=== PATIENT | male | born 1965 | race Caucasian/White ===

== ENCOUNTER 2016-12-02 14:19 | Inpatient (IN) | payer OTHER ==
[2016-12-02] MEDS ORDERED: SODIUM CHLORIDE 0.9% 1,000 ML IV STA (15:15)
--- NOTE | 2016-12-02 15:15 | ED ---
Weakness HPI - General Chief complaint: Weakness Stated complaint: Weakness Time Seen by Provider: 12/02/16 14:56 Source: patient, EMS Mode of arrival: EMS Limitations: no limitations - History of Present Illness Initial comments: Patient is a 51-year-old male who presents with a chief complaint gradually worsening weakness over the last 3 days. Patient has a significant history of multiple sclerosis. She describes generalized weakness over the last 3 days culminating in a fall happened yesterday while he was going to the bathroom. Patient states he went to stand up from the toilet, and was unable to do so and fell back down. He is complaining of left hip pain and back pain at this time. Patient cannot identify any aggravating or alleviating factors to his weakness. Timing is constant. Patient does admit that he was admitted to the hospital last year for an exacerbation of multiple sclerosis, and he states this feels similar. MD Complaint: generalized weakness, difficulty walking Onset/Timin -: days(s) Location: generalized Severity: moderate Consistency: constant Improves with: none Worsens with: exertion Context: other (Hx of MS ) Associated Symptoms: shortness of breath - Related Data Home Medications Medication Instructions Recorded Confirmed Aspirin 81 mg PO DAILY 09/29/13 12/02/16 Cyclobenzaprine [Flexeril] 10 mg PO TID PRN 09/29/13 12/02/16 Gabapentin [Neurontin] 600 mg PO QID 09/29/13 12/02/16 Tamsulosin HCl [Flomax] 0.8 mg PO HS 09/29/13 12/02/16 Ergocalciferol [Vitamin D2 1 tab PO QMONTH 04/25/14 12/02/16 (DRISDOL)] Docusate [Colace] 200 mg PO DAILY PRN 04/05/15 12/02/16 Oxybutynin Chloride [Ditropan] 5 mg PO BID 06/18/16 12/02/16 Clotrimazole [Lotrimin AF] 1 applic TOPICAL TID PRN 12/02/16 12/02/16 Cyanocobalamin [Vitamin B-12] 500 mcg PO DAILY 12/02/16 12/02/16 Doxazosin Mesylate [Cardura] 2 mg PO HS 12/02/16 12/02/16 Omeprazole 20 mg PO BID 12/02/16 12/02/16 Previous Rx's Medication Instructions Recorded HYDROcodone/APAP 5-325MG [[place] 1 tab PO BID PRN #60 tab 04/11/15 5-325] Ibuprofen [Motrin] 800 mg PO BID PRN #0 04/11/15 Allergies Allergy/AdvReac Type Severity Reaction Status Date / Time bee venom protein (honey bee) Allergy Anaphylaxis Verified 12/02/16 15:14 Penicillins Allergy Rash/Hives Verified 12/02/16 15:14 Review of Systems ROS Statement: Those systems with pertinent positive or pertinent negative responses have been documented in the HPI. ROS Other: All systems not noted in ROS Statement are negative. Constitutional: Reports: weakness Respiratory: Reports: dyspnea Gastrointestinal: Reports: constipation Musculoskeletal: Reports: arthralgia Past Medical History Past Medical History: GERD/Reflux, Musculoskeletal Disorder, Prostate Disorder, Sleep Apnea/CPAP/BIPAP Additional Past Medical History / Comment(s): Yen shinnelson- 15 years ago,won't use machine,norm for pt-he is able able to walk 5 steps with walker but last few days to weak to even lift legs, unable to walk or stand. Pt states has memory problems related to Multiple Sclerosis. History of Any Multi-Drug Resistant Organisms: None Reported Past Surgical History: No Surgical Hx Reported Additional Past Surgical History / Comment(s): laser eye sx oliva eyes( glaucoma) [place] teeth extraction. Past Anesthesia/Blood Transfusion Reactions: No Reported Reaction Past Psychological History: No Psychological Hx Reported Smoking Status: Current every day smoker Past Alcohol Use History: None Reported Past Drug Use History: Marijuana - Past Family History Father Family Medical History: Cancer Additional Family Medical History / Comment(s): liver cancer Mother Family Medical History: Diabetes Mellitus, Deep Vein Thrombosis (DVT) Sister(s) Family Medical History: Cancer General Exam Limitations: no limitations General appearance: alert, in no apparent distress Head exam: Present: atraumatic, normocephalic Eye exam: Present: normal appearance, PERRL, EOMI ENT exam: Present: normal oropharynx Neck exam: Present: normal inspection Respiratory exam: Present: wheezes (Patient has bilateral wheezes likely secondary to COPD.) Cardiovascular Exam: Present: regular rate, normal rhythm GI/Abdominal exam: Present: soft, tenderness (patient has suprapubic tenderness) Extremities exam: Present: normal inspection Back exam: Present: normal inspection Neurological exam: Present: alert, oriented X3, abnormal gait Psychiatric exam: Present: normal affect, normal mood Skin exam: Present: warm, dry, intact Course Vital Signs 12/02/16 12/02/16 14:30 16:13 Temperature 97.9 F Pulse Rate 71 74 Respiratory 16 18 Rate Blood Pressure 116/74 143/82 O2 Sat by Pulse 99 98 Oximetry Medical Decision Making - Medical Decision Making Patient is a 51-year-old male with a history of multiple sclerosis who presents with a chief complaint of weakness. Patient states that this has been getting worse over the last 3 days, culminating in him falling while trying to stand up from the toilet. He states that he has left hip and back pain secondary to his fall. Patient's history and exam suspect for exacerbation of MS. We'll send basic lab work, troponins, and TSH. We'll send patient for CT head as there is no recent examination on file for this patient. CT results from 04/05/2015 showed that there are no acute intracranial findings other than fairly moderate white matter changes secondary to suspected MS. She will have x-rays of his left hip and lumbar spine. EKG performed at 45 shows normal sinus rhythm with a rate of 62 bpm. Intervals appear to be within normal limits. EKG is otherwise nonspecific. Patient was given an initial dose of 125 mg of Solu- Medrol. Lab evaluation of this patient is grossly unremarkable. Urinalysis does not show strong evidence of urinary tract infection therefore antibiotics will be held at this time. At this time we are still pending results of the CT brain. My impression is that this patient is having exacerbation of multiple sclerosis. 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 Paul who accepts admission of this patient. Reevaluation of the patient shows that he is stable, in no acute distress. Patient is stable for transport to the floor. - Lab Data Result diagrams: 12/02/16 16:00 12/02/16 16:00 Lab Results 12/02/16 12/02/16 12/02/16 Range/Units 16:00 16:00 16:00 WBC 11.0 H (3.8-10.6) k/uL RBC 5.03 (4.30-5.90) m/uL Hgb 17.2 (13.0-17.5) gm/dL Hct 48.6 (39.0-53.0) % MCV 96.8 (80.0-100.0) fL MCH 34.2 (25.0-35.0) pg MCHC 35.3 (31.0-37.0) g/dL RDW 12.2 (11.5-15.5) % Plt Count 195 (150-450) k/uL Neutrophils % 70 % Lymphocytes % 22 % Monocytes % 4 % Eosinophils % 3 % Basophils % 1 % Neutrophils # 7.7 (1.3-7.7) k/uL Lymphocytes # 2.4 (1.0-4.8) k/uL Monocytes # 0.4 (0-1.0) k/uL Eosinophils # 0.3 (0-0.7) k/uL Basophils # 0.1 (0-0.2) k/uL PT (9.0-12.0) sec INR (<1.1) APTT (22.0-30.0) sec Sodium 141 (137-145) mmol/L Potassium 4.2 (3.5-5.1) mmol/L Chloride 107 (98-107) mmol/L Carbon Dioxide 24 (22-30) mmol/L Anion Gap 10 mmol/L BUN 16 (9-20) mg/dL Creatinine 0.68 (0.66-1.25) mg/dL Est GFR (MDRD) Af Amer >60 (>60 ml/min/1.73 sqM) Est GFR (MDRD) Non-Af >60 (>60 ml/min/1.73 sqM) Glucose 82 (74-99) mg/dL Calcium 9.5 (8.4-10.2) mg/dL Total Bilirubin 1.2 (0.2-1.3) mg/dL AST 18 (17-59) U/L ALT 26 (21-72) U/L Alkaline Phosphatase 69 (38-126) U/L Total Creatine Kinase 76 (55-170) U/L CK-MB (CK-2) 0.6 (0.0-2.4) ng/mL CK-MB (CK-2) Rel Index 0.8 Troponin I <0.012 (0.000-0.034) ng/mL Total Protein 7.0 (6.3-8.2) g/dL Albumin 4.3 (3.5-5.0) g/dL TSH 0.819 (0.465-4.680) mIU/L Urine Color Urine Appearance (Clear) Urine pH (5.0-8.0) Ur Specific [place] (1.001-1.035) Urine Protein (Negative) Urine Glucose (UA) (Negative) Urine Ketones (Negative) Urine Blood (Negative) Urine Nitrite (Negative) Urine Bilirubin (Negative) Urine Urobilinogen (<2.0) mg/dL Ur Leukocyte Esterase (Negative) Urine WBC (0-5) /hpf Urine Mucus (None) /hpf 12/02/16 12/02/16 Range/Units 16:00 17:07 WBC (3.8-10.6) k/uL RBC (4.30-5.90) m/uL Hgb (13.0-17.5) gm/dL Hct (39.0-53.0) % MCV (80.0-100.0) fL MCH (25.0-35.0) pg MCHC (31.0-37.0) g/dL RDW (11.5-15.5) % Plt Count (150-450) k/uL Neutrophils % % Lymphocytes % % Monocytes % % Eosinophils % % Basophils % % Neutrophils # (1.3-7.7) k/uL Lymphocytes # (1.0-4.8) k/uL Monocytes # (0-1.0) k/uL Eosinophils # (0-0.7) k/uL Basophils # (0-0.2) k/uL PT 10.9 (9.0-12.0) sec INR 1.1 (<1.1) APTT 21.9 L (22.0-30.0) sec Sodium (137-145) mmol/L Potassium (3.5-5.1) mmol/L Chloride (98-107) mmol/L Carbon Dioxide (22-30) mmol/L Anion Gap mmol/L BUN (9-20) mg/dL Creatinine (0.66-1.25) mg/dL Est GFR (MDRD) Af Amer (>60 ml/min/1.73 sqM) Est GFR (MDRD) Non-Af (>60 ml/min/1.73 sqM) Glucose (74-99) mg/dL Calcium (8.4-10.2) mg/dL Total Bilirubin (0.2-1.3) mg/dL AST (17-59) U/L ALT (21-72) U/L Alkaline Phosphatase (38-126) U/L Total Creatine Kinase (55-170) U/L CK-MB (CK-2) (0.0-2.4) ng/mL CK-MB (CK-2) Rel Index Troponin I (0.000-0.034) ng/mL Total Protein (6.3-8.2) g/dL Albumin (3.5-5.0) g/dL TSH (0.465-4.680) mIU/L Urine Color Yellow Urine Appearance Clear (Clear) Urine pH 6.5 (5.0-8.0) Ur Specific [place] 1.011 (1.001-1.035) Urine Protein Negative (Negative) Urine Glucose (UA) Negative (Negative) Urine Ketones Trace H (Negative) Urine Blood Negative (Negative) Urine Nitrite Negative (Negative) Urine Bilirubin Negative (Negative) Urine Urobilinogen 4.0 (<2.0) mg/dL Ur Leukocyte Esterase Moderate H (Negative) Urine WBC 8 H (0-5) /hpf Urine Mucus Rare H (None) /hpf Disposition Clinical Impression: Multiple sclerosis exacerbation, Abnormal gait, Fall, Left hip pain Disposition: ADMITTED IP TO THIS HOSP Condition: Fair Referrals: None,Stated [Primary Care Provider] - 1-2 days - Out of Hospital Transfer - Req. Specs Out of Hospital Transfer - Requested Specifics: Telemetry Unit
[2016-12-02] MEDS ORDERED: methylPREDNISolone 4 MG TAB PO STA (15:32)
[2016-12-02] MEDS ORDERED: methylPREDNISolone SOD SUCCI 125 MG/2 ML VIAL IV STA (15:51)
[2016-12-02 16:20] LABS: Basophils # (A) 0.1 k/uL (0-0.2); Basophils % (A) 1 %; CH 33.5; CHCM 34.8; Eosinophils # (A) 0.3 k/uL (0-0.7); Eosinophils % (A) 3 %; HCT 48.6 % (39.0-53.0); HDW 2.49; HGB 17.2 gm/dL (13.0-17.5); Luc # (Auto) 0.17; Luc % (Auto) 2; Lymphocytes # (A) 2.4 k/uL (1.0-4.8); Lymphocytes % (A) 22 %; MCH 34.2 pg (25.0-35.0); MCHC 35.3 g/dL (31.0-37.0); MCV 96.8 fL (80.0-100.0); Mean Platelet Volume 7.4; Monocytes # (A) 0.4 k/uL (0-1.0); Monocytes % (A) 4 %; Neutrophils # (A) 7.7 k/uL (1.3-7.7); Neutrophils % (A) 70 %; RBC 5.03 m/uL (4.30-5.90); RDW 12.2 % (11.5-15.5); WBC (Perox) 10.78
[2016-12-02 16:27] LABS: INR 1.1 (<1.1); Partial Thromboplastin Time 21.9 sec (22.0-30.0); Prothrombin Time 10.9 sec (9.0-12.0)
[2016-12-02 16:30] LABS: ALT 26 U/L (21-72); AST 18 U/L (17-59); Alkaline Phosphatase 69 U/L (38-126); Anion Gap 10 mmol/L; Blood Urea Nitrogen 16 mg/dL (9-20); Calcium 9.5 mg/dL (8.4-10.2); Carbon Dioxide 24 mmol/L (22-30); Chloride 107 mmol/L (98-107); Glucose 82 mg/dL (74-99); Non-African American GFR(MDRD) >60 (>60 ml/min/1.73 sqM); Potassium 4.2 mmol/L (3.5-5.1); Sodium 141 mmol/L (137-145); Total Bilirubin 1.2 mg/dL (0.2-1.3)
[2016-12-02 16:41] LABS: Creatine Kinase 76 U/L (55-170)
--- NOTE | 2016-12-02 16:47 | XR ---
EXAMINATION TYPE: XR chest 2V DATE OF EXAM: 12/02/2016 COMPARISON: Chest x-ray November 20, 2015 HISTORY: Fall today with weakness and pain. TECHNIQUE: Frontal and lateral views of the chest are obtained. FINDINGS: There is no focal air space opacity, pleural effusion, or pneumothorax seen. The cardiac silhouette size is within normal limits. The osseous structures are intact. IMPRESSION: No acute process identified. No significant change from prior.
--- NOTE | 2016-12-02 16:47 | XR ---
EXAMINATION TYPE: XR Hip Complete LT DATE OF EXAM: 12/02/2016 CLINICAL HISTORY: Fall today with left hip pain. TECHNIQUE: AP and frogleg views of the left hip are obtained. COMPARISON: None. FINDINGS: There is no acute fracture/dislocation evident in the left hip. The joint space in the le ft hip appears within normal limits. Some scattered pelvic phleboliths are noted. IMPRESSION: There is no acute fracture or dislocation in the left hip.
--- NOTE | 2016-12-02 16:50 | XR ---
EXAMINATION TYPE: XR lumbar spine 2 or 3V DATE OF EXAM: 12/02/2016 CLINICAL HISTORY: Fall today with low back pain TECHNIQUE: Frontal and lateral images of the lumbar spine are obtained. COMPARISON: CT lumbar spine July 11, 2010 FINDINGS: There are 5 lumbar type vertebral bodies identified given [place] of bilateral hypoplas tic T12 ribs used on prior CT. The lumbar spine shows suspected grade 1 retrolisthesis L4 on L5 with out evidence of acute fracture or dislocation. Vertebral body heights are within normal limits. Mild to moderate disc space narrowing L4-L5 level is seen. Suspect pars defects L5 level confirmed on prio r CT. Vascular calcification of the overlying abdominal aorta is noted. IMPRESSION: No acute fracture or dislocation is seen in the lumbar spine. There are persistent bilat eral pars defects with subtle spondylolisthesis L5 level not significant change from 2011 CT.
[2016-12-02 16:55] LABS: Creatine Kinase MB 0.6 ng/mL (0.0-2.4); Troponin I <0.012 ng/mL (0.000-0.034)
[2016-12-02 17:18] LABS: Appearance,Urine Clear (Clear); Bilirubin,Urine Negative (Negative); Glucose,Urine (UA) Negative (Negative); Ketones,Urine Trace (Negative); Leukocyte Esterase,Urine Moderate (Negative); Mucus,Urine Rare /hpf; Nitrite,Urine Negative (Negative); PH, Urine 6.5 (5.0-8.0); Particle Count 4475; Protein,Urine Negative (Negative); Specific Gravity,Urine 1.011 (1.001-1.035); UA Billing (MACRO vs. MICRO) MICRO; WBC,Urine 8 /hpf (0-5)
[2016-12-02] MEDS ORDERED: NALOXONE 0.4 MG/ML 1 ML VIAL IV PRN (18:04)
--- NOTE | 2016-12-02 18:11 | CT ---
Exam: CT HEAD Without Contrast INDICATION: Weakness TECHNIQUE: Multiple, contiguous 3 mm axial cuts of the brain are obtained from the posterior fossa to the cranial vault. Sagittal and coronal reformatted images provided. No IV contrast is administered. This CT exam was performed using one or more of the following dose reduction techniques: automated exposure control, adjustment of the mA and/or kV according to patient size, and/or use of iterative reconstruction technique. CTDI 57.40, DLP 1029.90 COMPARISON: CT head 04/05/15 FINDINGS: No intracranial hemorrhage, abnormal intra- or extra-axial collections or parenchymal lesions are seen. There are involutional changes with prominence of the sulci, basal cisterns and ventricles. Scattered white matter hypoattenuations are present, likely from small vessel disease. The redding-white differentiation is preserved. No evidence of mass effect, midline shift, or edema. 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 The osseous structures are unremarkable. The visualized portions of the paranasal sinuses are clear aside from 2.5 x 1.5 cm retention cyst versus polyp in the right maxillary sinus. Mastoid air cells are clear. No skull fractures.. IMPRESSION: 1. No acute intracranial hemorrhage or acute intracranial process. 2. Involutional changes with small vessel disease. 3. Stable small region of encephalomalacic change in the left frontal lobe at the vertex. 4. 2.5 cm retention cyst versus polyp in the right maxillary sinus.
[2016-12-02] MEDS: SODIUM CHLORIDE 0.45% 1,000 ML IV SCH (18:41)
[2016-12-02 20:58] VITALS: BMI 29.1
[2016-12-02] MEDS: GABAPENTIN 300 MG CAP PO SCH (23:05)
[2016-12-02] MEDS: PANTOPRAZOLE 40 MG TABLET PO SCH (23:05)
[2016-12-02] MEDS: NICOTINE 21MG/24HR PATCH TRANSDERM SCH (23:05)
[2016-12-03] MEDS: HYDROcodone/APAP 5-325MG 1 EACH TAB PO PRN ×3 (00:02→21:38)
[2016-12-03] MEDS: IBUPROFEN 800 MG TAB PO PRN ×2 (03:09→17:33)
[2016-12-03 07:44] LABS: Basophils % (A) 0 %; CH 34.2; CHCM 35.2; Eosinophils % (A) 0 %; HCT 45.8 % (39.0-53.0); HDW 2.43; HGB 15.8 gm/dL (13.0-17.5); Luc % (Auto) 1; Lymphocytes # (A) 1.4 k/uL (1.0-4.8); Lymphocytes % (A) 13 %; MCH 33.6 pg (25.0-35.0); MCHC 34.5 g/dL (31.0-37.0); MCV 97.4 fL (80.0-100.0); Mean Platelet Volume 7.3; Monocytes # (A) 0.5 k/uL (0-1.0); Monocytes % (A) 5 %; Neutrophils # (A) 8.4 k/uL (1.3-7.7); Neutrophils % (A) 81 %; RDW 12.5 % (11.5-15.5); WBC 10.4 k/uL (3.8-10.6); WBC (Perox) 10.06
[2016-12-03 08:04] LABS: Anion Gap 10 mmol/L; Blood Urea Nitrogen 15 mg/dL (9-20); Calcium 9.3 mg/dL (8.4-10.2); Carbon Dioxide 20 mmol/L (22-30); Chloride 111 mmol/L (98-107); Glucose 107 mg/dL (74-99); Non-African American GFR(MDRD) >60 (>60 ml/min/1.73 sqM); Potassium 4.4 mmol/L (3.5-5.1); Sodium 141 mmol/L (137-145)
[2016-12-03] MEDS: NICOTINE 21MG/24HR PATCH TRANSDERM SCH (08:21)
[2016-12-03] MEDS: GABAPENTIN 300 MG CAP PO SCH ×4 (08:21→21:38)
[2016-12-03] MEDS: PANTOPRAZOLE 40 MG TABLET PO SCH ×2 (08:21→17:27)
[2016-12-03] MEDS ORDERED: IBUPROFEN 800 MG TAB PO SCH (09:00)
[2016-12-03] MEDS ORDERED: HYDROcodone/APAP 5-325MG 1 EACH TAB PO SCH (09:00)
[2016-12-03] MEDS ORDERED: Magnesium Replacement Protocol 1 EACH MISC MISCELLANE PRN (12:50)
[2016-12-03] MEDS ORDERED: Potassium Replacement Protocol 1 EACH MISC MISCELLANE PRN (12:50)
[2016-12-03] MEDS ORDERED: DOCUSATE 100 MG CAP PO PRN (12:52)
--- NOTE | 2016-12-03 12:58 | P.HPIM ---
History of Present Illness H&P Date: 12/03/16 Chief Complaint: Generalized weakness This is a 51-year-old gentleman with past medical history noted below significant for underlying multiple sclerosis who presented to the emergency room generalized weakness and a fall. Patient said that he did not see a neurologist for the past year. He used to follow-up with a neurologist out of town in [place]. He said for the past few days he noted progressive weakness and fatigue. He said that his muscles are given up on him. He reported this is a similar presentation to what happened to him approximately a year ago when he was admitted to the hospital and was treated with IV steroids. Patient said that he was trying to get out of the bathroom and he had a fall secondary to severe weakness. He was evaluated in the emergency room and multiple x-ray as well as a computed tomography scan of the brain showed no acute findings. Patient was given 1 dose of IV Solu-Medrol 125 mg in the ER and was admitted to the hospital for further evaluation. He is awake and alert today. He is not feeling any better compared to yesterday. Review of Systems Review of system: 14 points review of systems were obtained and were negative except to what were mentioned in the HPI. Past Medical History Past Medical History: GERD/Reflux, Musculoskeletal Disorder, Prostate Disorder, Sleep Apnea/CPAP/BIPAP Additional Past Medical History / Comment(s): Yen josé miguel- 15 years ago,won't use machine,norm for pt-he is able able to walk 5 steps with walker but last few days to weak to even lift legs, unable to walk or stand. Pt states has memory problems related to Multiple Sclerosis. History of Any Multi-Drug Resistant Organisms: None Reported Past Surgical History: No Surgical Hx Reported Additional Past Surgical History / Comment(s): laser eye sx oliva eyes( glaucoma) [place] teeth extraction. 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 [employer] Smoking Status: Current every day smoker Past Alcohol Use History: None Reported Past Drug Use History: Marijuana - Past Family History Father Family Medical History: Cancer Additional Family Medical History / Comment(s): liver cancer Mother Family Medical History: Diabetes Mellitus, Deep Vein Thrombosis (DVT) Sister(s) Family Medical History: Cancer Medications and Allergies Home Medications Medication Instructions Recorded Confirmed Type Aspirin 81 mg PO DAILY 09/29/13 12/02/16 History Cyclobenzaprine [Flexeril] 10 mg PO TID PRN 09/29/13 12/02/16 History Gabapentin [Neurontin] 600 mg PO QID 09/29/13 12/02/16 History Tamsulosin HCl [Flomax] 0.8 mg PO HS 09/29/13 12/02/16 History Ergocalciferol [Vitamin D2 1 tab PO QMONTH 04/25/14 12/02/16 History (DRISDOL)] Docusate [Colace] 200 mg PO DAILY PRN 04/05/15 12/02/16 History Oxybutynin Chloride [Ditropan] 5 mg PO BID 06/18/16 12/02/16 History Clotrimazole [Lotrimin AF] 1 applic TOPICAL TID PRN 12/02/16 12/02/16 History Cyanocobalamin [Vitamin B-12] 500 mcg PO DAILY 12/02/16 12/02/16 History Doxazosin Mesylate [Cardura] 2 mg PO HS 12/02/16 12/02/16 History Omeprazole 20 mg PO BID 12/02/16 12/02/16 History Allergies Allergy/AdvReac Type Severity Reaction Status Date / Time bee venom protein (honey bee) Allergy Anaphylaxis Verified 12/02/16 15:14 Penicillins Allergy Rash/Hives Verified 12/02/16 15:14 Physical Exam Vitals: Vital Signs Temp Pulse Pulse Resp BP BP Pulse Ox 12/03/16 08:05 95 12/03/16 08:00 60 18 12/03/16 07:00 98.0 F 60 18 122/68 96 12/03/16 00:00 71 18 12/02/16 21:59 97.6 F 71 18 120/73 97 12/02/16 18:51 98.1 F 72 16 135/79 96 12/02/16 16:13 74 18 143/82 98 12/02/16 14:30 97.9 F 71 16 116/74 99 Intake and Output 12/02/16 12/03/16 12/03/16 22:59 06:59 14:59 Intake Total 20 240 Output Total 2 Balance 20 240 -2 Intake: Oral 20 240 Output: Urine 2 Other: Voiding Method Urinal Urinal # Voids 1 3 1 Weight 94.801 kg 94.801 kg Patient Weight 12/04/16 06:59 Weight 94.801 kg General: The patient is awake and alert, in no distress Eye: there is normal conjunctiva bilaterally. Neck: The neck is supple, there is no JVD. Cardiovascular: Normal S1-S2, no S3-S4, no murmurs. Respiratory: Lungs clear to auscultation bilaterally Gastrointestinal: Abdomen is soft, nontender Musculoskeletal: There is no pedal edema. Neurological:. Speech is normal. Skin: Skin is warm and dry Results CBC & Chem 7: 12/03/16 07:08 12/03/16 07:08 Labs: Abnormal Lab Results - Last 24 Hours (Table) 12/02/16 12/02/16 12/02/16 Range/Units 16:00 16:00 17:07 WBC 11.0 H (3.8-10.6) k/uL Neutrophils # (1.3-7.7) k/uL APTT 21.9 L (22.0-30.0) sec Chloride (98-107) mmol/L Carbon Dioxide (22-30) mmol/L Creatinine (0.66-1.25) mg/dL Glucose (74-99) mg/dL Urine Ketones Trace H (Negative) Ur Leukocyte Esterase Moderate H (Negative) Urine WBC 8 H (0-5) /hpf Urine Mucus Rare H (None) /hpf 12/03/16 12/03/16 Range/Units 07:08 07:08 WBC (3.8-10.6) k/uL Neutrophils # 8.4 H (1.3-7.7) k/uL APTT (22.0-30.0) sec Chloride 111 H (98-107) mmol/L Carbon Dioxide 20 L (22-30) mmol/L Creatinine 0.62 L (0.66-1.25) mg/dL Glucose 107 H (74-99) mg/dL Urine Ketones (Negative) Ur Leukocyte Esterase (Negative) Urine WBC (0-5) /hpf Urine Mucus (None) /hpf Thrombosis Risk Factor Assmnt - Choose All That Apply Any of the Below Risk Factors Present?: Yes Each Factor Represents 1 point: Age 41-60 years Other Risk Factors: No Other congenital or acquired thrombophilia - If yes, enter type in comment: No Thrombosis Risk Factor Assessment Total Risk Factor Score: 1 Thrombosis Risk Factor Assessment Level: Low Risk Assessment and Plan Plan: 1. Acute multiple sclerosis exacerbation: I would start IV Solu-Medrol 250 mg intravenously every 6 hours. I would consult neurology. Patient may need 5 days of IV steroid awaiting neurology evaluation. 2. Mechanical fall: Patient had a computed tomography scan of the brain, lumbar spine, and hip x-ray in the emergency room showing no acute findings. 3. Chronic benign prostatic hyperplasia 4. GERD 5. Urinary tract infection: I will start IV ceftriaxone awaiting urine culture 6. Physical debility: I will consult PT/OT Today, I reviewed his medication list and lab work results. Continue current regimen. Start sliding scale insulin while on IV Solu-Medrol. Repeat lab work in the morning. Subcu heparin for DVT prophylaxis.
[2016-12-03] MEDS ORDERED: methylPREDNISolone SOD SUCCI 125 MG/2 ML VIAL IV SCH (13:00)
[2016-12-03] MEDS: methylPREDNISolone SOD SUCCI 250 MG in SODIUM CHLORIDE 0.9% 100 ML IVPB SCH ×3 (14:32→23:40)
[2016-12-03 17:57] LABS: Glucose,Whole Blood 116 mg/dL (75-99)
[2016-12-03] MEDS: INSULIN LISPRO (humaLOG) 300 UNIT/3 ML VIAL SQ SCH ×2 (18:49→21:53)
[2016-12-03 19:28] LABS: Hemoglobin A1C 5.1 % (4.2-6.1)
[2016-12-03 20:04] LABS: Glucose,Whole Blood 191 mg/dL (75-99)
[2016-12-03] MEDS ORDERED: NON-FORMULARY DRUG (Omeprazole [Omeprazole] 20 MG) PO SCH (21:00)
[2016-12-03] MEDS: CYCLOBENZAPRINE 10 MG TAB PO PRN (21:38)
[2016-12-03] MEDS: TAMSULOSIN 0.4 MG CAP.ER.24H PO SCH (21:52)
[2016-12-03] MEDS: DOXAZOSIN 2 MG TAB PO SCH (21:52)
[2016-12-03] MEDS: HEPARIN SODIUM,PORCINE 5,000 UNIT/ML 1 ML VIAL SQ SCH (21:53)
[2016-12-03] MEDS: SODIUM CHLORIDE 0.45% 1,000 ML IV SCH (21:57)
[2016-12-04] MEDS: methylPREDNISolone SOD SUCCI 250 MG in SODIUM CHLORIDE 0.9% 100 ML IVPB SCH ×3 (06:15→18:22)
[2016-12-04] MEDS: GABAPENTIN 300 MG CAP PO SCH ×4 (06:54→21:13)
[2016-12-04] MEDS: PANTOPRAZOLE 40 MG TABLET PO SCH ×2 (06:54→18:22)
[2016-12-04] MEDS: IBUPROFEN 800 MG TAB PO PRN ×2 (06:54→16:15)
[2016-12-04 07:03] LABS: Glucose,Whole Blood 146 mg/dL (75-99)
[2016-12-04 07:47] LABS: Basophils % (A) 0 %; CHCM 35.2; Eosinophils % (A) 0 %; HCT 45.9 % (39.0-53.0); HDW 2.44; HGB 16.2 gm/dL (13.0-17.5); Luc # (Auto) 0.02; Luc % (Auto) 0; Lymphocytes # (A) 0.8 k/uL (1.0-4.8); Lymphocytes % (A) 9 %; MCH 34.2 pg (25.0-35.0); MCHC 35.3 g/dL (31.0-37.0); MCV 96.9 fL (80.0-100.0); Mean Platelet Volume 7.3; Monocytes # (A) 0.1 k/uL (0-1.0); Monocytes % (A) 1 %; Neutrophils # (A) 7.9 k/uL (1.3-7.7); Neutrophils % (A) 90 %; RBC 4.74 m/uL (4.30-5.90); RDW 12.6 % (11.5-15.5); WBC 8.8 k/uL (3.8-10.6); WBC (Perox) 8.54
[2016-12-04] MEDS: ASPIRIN 81 MG CHEW PO SCH (07:50)
[2016-12-04] MEDS: INSULIN LISPRO (humaLOG) 300 UNIT/3 ML VIAL SQ SCH ×4 (07:50→21:14)
[2016-12-04] MEDS: HEPARIN SODIUM,PORCINE 5,000 UNIT/ML 1 ML VIAL SQ SCH ×2 (07:50→21:14)
[2016-12-04] MEDS: NICOTINE 21MG/24HR PATCH TRANSDERM SCH (07:50)
[2016-12-04] MEDS: CYCLOBENZAPRINE 10 MG TAB PO PRN (07:50)
[2016-12-04] MEDS: HYDROcodone/APAP 5-325MG 1 EACH TAB PO PRN ×2 (07:52→16:16)
[2016-12-04 08:07] LABS: Anion Gap 11 mmol/L; Blood Urea Nitrogen 18 mg/dL (9-20); Calcium 9.5 mg/dL (8.4-10.2); Carbon Dioxide 22 mmol/L (22-30); Chloride 109 mmol/L (98-107); Glucose 148 mg/dL (74-99); Non-African American GFR(MDRD) >60 (>60 ml/min/1.73 sqM); Sodium 142 mmol/L (137-145)
[2016-12-04 11:59] LABS: Glucose,Whole Blood 189 mg/dL (75-99)
--- NOTE | 2016-12-04 13:29 | P.PN ---
Subjective Patient is doing fairly well today. He still complaining of generalized pain worse in the lower extremity. He was up in the chair. Objective - Vital Signs Vital signs: Vital Signs Temp 97.7 F 12/04/16 07:00 Pulse 71 12/04/16 07:00 Resp 16 12/04/16 07:00 BP 116/61 12/04/16 07:00 Pulse Ox 96 12/04/16 07:00 Intake & Output 12/03/16 12/04/16 12/04/16 18:59 06:59 18:59 Intake Total 240 200 Output Total 2 250 Balance 238 200 -250 Weight 94.801 kg Intake: IV 200 methylPREDNISolone SOD 200 SUCCI 250 mg In Sodium Chloride 0.9% 100 ml @ 100 mls/hr IVPB Q6HR [facility] Rx#:[id number] Oral 240 Output: Urine 2 250 Other: Voiding Method Urinal Urinal Urinal # Voids 1 2 1 - Exam General: The patient is awake and alert, in no distress Eye: there is normal conjunctiva bilaterally. Neck: The neck is supple, there is no JVD. Cardiovascular: Normal S1-S2, no S3-S4, no murmurs. Respiratory: Lungs clear to auscultation bilaterally Gastrointestinal: Abdomen is soft, nontender Musculoskeletal: There is no pedal edema. Neurological:. Speech is normal. Skin: Skin is warm and dry - Labs CBC & Chem 7: 12/04/16 07:12 12/04/16 07:12 Labs: Abnormal Lab Results - Last 24 Hours (Table) 12/03/16 12/03/16 12/04/16 Range/Units 17:38 20:01 07:01 Neutrophils # (1.3-7.7) k/uL Lymphocytes # (1.0-4.8) k/uL Chloride (98-107) mmol/L Creatinine (0.66-1.25) mg/dL Glucose (74-99) mg/dL POC Glucose (mg/dL) 116 H 191 H 146 H (75-99) mg/dL 12/04/16 12/04/16 12/04/16 Range/Units 07:12 07:12 11:56 Neutrophils # 7.9 H (1.3-7.7) k/uL Lymphocytes # 0.8 L (1.0-4.8) k/uL Chloride 109 H (98-107) mmol/L Creatinine 0.62 L (0.66-1.25) mg/dL Glucose 148 H (74-99) mg/dL POC Glucose (mg/dL) 189 H (75-99) mg/dL Microbiology - Last 24 Hours (Table) 12/03/16 17:27 Urine Culture - Preliminary Urine,Voided Assessment and Plan Plan: 1. Acute multiple sclerosis exacerbation: I would start IV Solu-Medrol 250 mg intravenously every 6 hours. I would consult neurology. Patient may need 5 days of IV steroid awaiting neurology evaluation. Stop date 12/08/2016 2. Mechanical fall: Patient had a computed tomography scan of the brain, lumbar spine, and hip x-ray in the emergency room showing no acute findings. 3. Chronic benign prostatic hyperplasia 4. GERD 5. Urinary tract infection: I will start IV ceftriaxone awaiting urine culture 6. Physical debility: I will consult PT/OT Today, I reviewed his medication list and lab work results. Continue current regimen. Sliding scale insulin while on IV Solu-Medrol. Repeat lab work in the morning. Subcu heparin for DVT prophylaxis. Awaiting neurology evaluation
[2016-12-04 17:34] LABS: Glucose,Whole Blood 179 mg/dL (75-99)
[2016-12-04] MEDS: SODIUM CHLORIDE 0.45% 1,000 ML IV SCH (18:24)
[2016-12-04 20:46] LABS: Glucose,Whole Blood 176 mg/dL (75-99)
[2016-12-04] MEDS: TAMSULOSIN 0.4 MG CAP.ER.24H PO SCH (21:13)
[2016-12-04] MEDS: DOXAZOSIN 2 MG TAB PO SCH (21:14)
[2016-12-05] MEDS: HYDROcodone/APAP 5-325MG 1 EACH TAB PO PRN ×3 (00:27→16:02)
[2016-12-05] MEDS: methylPREDNISolone SOD SUCCI 250 MG in SODIUM CHLORIDE 0.9% 100 ML IVPB SCH ×4 (00:27→18:07)
[2016-12-05] MEDS: IBUPROFEN 800 MG TAB PO PRN ×3 (00:29→16:01)
[2016-12-05 06:59] LABS: Glucose,Whole Blood 139 mg/dL (75-99)
[2016-12-05] MEDS: HEPARIN SODIUM,PORCINE 5,000 UNIT/ML 1 ML VIAL SQ SCH ×2 (07:32→20:31)
[2016-12-05] MEDS: NICOTINE 21MG/24HR PATCH TRANSDERM SCH (07:32)
[2016-12-05] MEDS: INSULIN LISPRO (humaLOG) 300 UNIT/3 ML VIAL SQ SCH ×4 (07:34→20:31)
[2016-12-05] MEDS: PANTOPRAZOLE 40 MG TABLET PO SCH ×2 (07:35→18:07)
[2016-12-05] MEDS: ASPIRIN 81 MG CHEW PO SCH (07:35)
[2016-12-05] MEDS: GABAPENTIN 300 MG CAP PO SCH ×4 (07:36→20:31)
[2016-12-05 08:00] LABS: Basophils % (A) 0 %; CH 33.8; CHCM 34.9; Eosinophils % (A) 0 %; HCT 43.2 % (39.0-53.0); HDW 2.42; HGB 15.1 gm/dL (13.0-17.5); Luc # (Auto) 0.05; Luc % (Auto) 0; Lymphocytes # (A) 0.7 k/uL (1.0-4.8); Lymphocytes % (A) 5 %; MCH 33.9 pg (25.0-35.0); MCV 97.1 fL (80.0-100.0); Mean Platelet Volume 7.7; Monocytes # (A) 0.3 k/uL (0-1.0); Monocytes % (A) 3 %; Neutrophils # (A) 12.6 k/uL (1.3-7.7); Neutrophils % (A) 92 %; RBC 4.45 m/uL (4.30-5.90); RDW 12.7 % (11.5-15.5); WBC 13.7 k/uL (3.8-10.6); WBC (Perox) 13.62
[2016-12-05 08:13] LABS: Anion Gap 9 mmol/L; Blood Urea Nitrogen 24 mg/dL (9-20); Calcium 9.5 mg/dL (8.4-10.2); Carbon Dioxide 22 mmol/L (22-30); Chloride 111 mmol/L (98-107); Glucose 140 mg/dL (74-99); Magnesium 2.2 mg/dL (1.6-2.3); Non-African American GFR(MDRD) >60 (>60 ml/min/1.73 sqM); Sodium 142 mmol/L (137-145)
[2016-12-05] MEDS: CYCLOBENZAPRINE 10 MG TAB PO PRN (11:10)
--- NOTE | 2016-12-05 11:36 | P.PN ---
Subjective Patient reports feeling worse today. He said that he did a lot of walking yesterday and believes that makes it feel weak this morning. He is complaining of pain involving his right shoulder and neck as well as both lower extremities. Objective - Vital Signs Vital signs: Vital Signs Temp 97.6 F 12/05/16 07:00 Pulse 57 L 12/05/16 07:00 Resp 16 12/05/16 07:00 BP 119/60 12/05/16 07:00 Pulse Ox 96 12/05/16 07:00 Intake & Output 12/04/16 12/05/16 12/05/16 18:59 06:59 18:59 Intake Total 500 600 Output Total 650 1000 Balance -650 -500 600 Intake: Intake, IV Titration 500 Amount methylPREDNISolone SOD 500 SUCCI 250 mg In Sodium Chloride 0.9% 100 ml @ 100 mls/hr IVPB Q6HR [facility] Rx#:[id number] Oral 600 Output: Urine 650 1000 Other: Voiding Method Urinal Urinal # Voids 1 1 - Exam General: The patient is awake and alert, in no distress Eye: there is normal conjunctiva bilaterally. Neck: The neck is supple, there is no JVD. Cardiovascular: Normal S1-S2, no S3-S4, no murmurs. Respiratory: Lungs clear to auscultation bilaterally Gastrointestinal: Abdomen is soft, nontender Musculoskeletal: There is no pedal edema. Neurological:. Speech is normal. Skin: Skin is warm and dry - Labs CBC & Chem 7: 12/05/16 07:30 12/05/16 07:30 Labs: Abnormal Lab Results - Last 24 Hours (Table) 12/04/16 12/04/16 12/04/16 Range/Units 11:56 17:33 20:26 WBC (3.8-10.6) k/uL Neutrophils # (1.3-7.7) k/uL Lymphocytes # (1.0-4.8) k/uL Chloride (98-107) mmol/L BUN (9-20) mg/dL Glucose (74-99) mg/dL POC Glucose (mg/dL) 189 H 179 H 176 H (75-99) mg/dL 12/05/16 12/05/16 12/05/16 Range/Units 06:57 07:30 07:30 WBC 13.7 H (3.8-10.6) k/uL Neutrophils # 12.6 H (1.3-7.7) k/uL Lymphocytes # 0.7 L (1.0-4.8) k/uL Chloride 111 H (98-107) mmol/L BUN 24 H (9-20) mg/dL Glucose 140 H (74-99) mg/dL POC Glucose (mg/dL) 139 H (75-99) mg/dL Assessment and Plan Plan: 1. Acute multiple sclerosis exacerbation: I would start IV Solu-Medrol 250 mg intravenously every 6 hours. I would consult neurology. Patient may need 5 days of IV steroid awaiting neurology evaluation. Stop date 12/08/2016 2. Mechanical fall: Patient had a computed tomography scan of the brain, lumbar spine, and hip x-ray in the emergency room showing no acute findings. 3. Chronic benign prostatic hyperplasia 4. GERD 5. Urinary tract infection: on IV ceftriaxone awaiting urine culture 6. Physical debility: I will consult PT/OT Today, I reviewed his medication list and lab work results. Continue current regimen. Sliding scale insulin while on IV Solu-Medrol. Repeat lab work in the morning. Subcu heparin for DVT prophylaxis. Awaiting neurology evaluation
[2016-12-05 11:49] LABS: Glucose,Whole Blood 158 mg/dL (75-99)
[2016-12-05] MEDS: METHYL SALICYLATE/MENTHOL CREAM 5 OZ TOPICAL PRN (12:43)
[2016-12-05 16:53] LABS: Glucose,Whole Blood 190 mg/dL (75-99)
[2016-12-05] MEDS: TAMSULOSIN 0.4 MG CAP.ER.24H PO SCH (20:31)
[2016-12-05] MEDS: DOXAZOSIN 2 MG TAB PO SCH (20:31)
--- NOTE | 2016-12-05 20:41 | P.CNNES ---
History of Present Illness Consult date: 12/05/16 Requesting physician: Danyelle Hampton Reason for Consult: Multiple Sclerosis Exacerbation Chief complaint: Multiple Sclerosis - Generalized Weakness History of Present Illness: Patient is a 51-year-old male being consult by neurology for generalized weakness and possible MS exacerbation. Patient has a complaint of gradually worsening weakness over approximately the last 3-4 days. Patient does have a documented diagnosis of multiple sclerosis. Patient's weakness resulted in a fall approximately 3-4 days ago while he was attempting to go to the restroom. Patient attempted to descend from the toilet seat and was unable to do so, fell backwards and down to the ground. Patient did initially complain of left hip pain and back pain on presentation. Patient does not have any exacerbating or alleviating factors. Patient also denies vision changes, diplopia, dizziness. Laboratory analysis was unremarkable and UA did not identify any infectious process. Patient CT of the brain noted no acute intracranial hemorrhage or acute intracranial process. Involutional changes with small vessel disease. Stable small region of encephalomalacia change in the left frontal lobe at the vertex. 2.5 cm retention cyst versus polyp in the right maxillary sinus. The patient was Seated in a bedside chair resting comfortably in no acute distress. Patient is alert and oriented 3. Patient further states that he has been diagnosed by the [facility] clinic with multiple sclerosis. He is being treated with gabapentin. States his last flare was approximately 2 years ago. Flairs generally involve bilateral lower extremity weakness with intermittent numbness and tingling. Patient does state that he is currently approximately 50% return to baseline and is completing day 3 of IV Solu-Medrol 1000 mg daily. Review of Systems Systems not previously noted in HPI or negative Past Medical History Past Medical History: GERD/Reflux, Musculoskeletal Disorder, Prostate Disorder, Sleep Apnea/CPAP/BIPAP Additional Past Medical History / Comment(s): josé miguel Barlow- 15 years ago,won't use machine,norm for pt-he is able able to walk 5 steps with walker but last few days to weak to even lift legs, unable to walk or stand. Pt states has memory problems related to Multiple Sclerosis. History of Any Multi-Drug Resistant Organisms: None Reported Past Surgical History: No Surgical Hx Reported Additional Past Surgical History / Comment(s): laser eye sx oliva eyes( glaucoma) [place] teeth extraction. 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 Smoking Status: Current every day smoker Past Alcohol Use History: None Reported Past Drug Use History: Marijuana - Past Family History Father Family Medical History: Cancer Additional Family Medical History / Comment(s): liver cancer Mother Family Medical History: Diabetes Mellitus, Deep Vein Thrombosis (DVT) Sister(s) Family Medical History: Cancer Medications and Allergies Home Medications Medication Instructions Recorded Confirmed Type Aspirin 81 mg PO DAILY 09/29/13 12/02/16 History Cyclobenzaprine [Flexeril] 10 mg PO TID PRN 09/29/13 12/02/16 History Gabapentin [Neurontin] 600 mg PO QID 09/29/13 12/02/16 History Tamsulosin HCl [Flomax] 0.8 mg PO HS 09/29/13 12/02/16 History Ergocalciferol [Vitamin D2 1 tab PO QMONTH 04/25/14 12/02/16 History (DRISDOL)] Docusate [Colace] 200 mg PO DAILY PRN 04/05/15 12/02/16 History Oxybutynin Chloride [Ditropan] 5 mg PO BID 06/18/16 12/02/16 History Clotrimazole [Lotrimin AF] 1 applic TOPICAL TID PRN 12/02/16 12/02/16 History Cyanocobalamin [Vitamin B-12] 500 mcg PO DAILY 12/02/16 12/02/16 History Doxazosin Mesylate [Cardura] 2 mg PO HS 12/02/16 12/02/16 History Omeprazole 20 mg PO BID 12/02/16 12/02/16 History Allergies Allergy/AdvReac Type Severity Reaction Status Date / Time bee venom protein (honey bee) Allergy Anaphylaxis Verified 12/02/16 15:14 Penicillins Allergy Rash/Hives Verified 12/02/16 15:14 Physical Examination - Vital Signs Vital Signs: Vital Signs Temp Pulse Resp BP BP Pulse Ox 12/05/16 15:47 61 16 12/05/16 15:00 97.8 F 61 16 120/58 96 12/05/16 08:00 57 L 16 12/05/16 07:00 97.6 F 57 L 16 119/60 96 12/04/16 22:30 98.2 F 62 16 124/61 95 12/04/16 22:22 16 Intake and Output 12/05/16 12/05/16 12/05/16 06:59 14:59 22:59 Intake Total 100 600 Output Total 350 Balance -250 600 Intake: Intake, IV Titration 100 Amount methylPREDNISolone SOD 100 SUCCI 250 mg In Sodium Chloride 0.9% 100 ml @ 100 mls/hr IVPB Q6HR [facility] Rx#:[id number] Oral 600 Output: Urine 350 Other: Voiding Method Urinal Urinal # Voids 1 # Bowel Movements 1 Constitutional: AOx3, cooperative HEENT: NC/AT, no facial asymmetry is seen. Throat: Supple, no masses Respiratory: No increased work of breathing Cardiac: Regular rate and Rhythm GI: non tender, non distended Musculoskeletal: Building Appraiser strengths are equal bilaterally 4/5, Lower extremity strengths are equal, diminished, bilaterally at 3/5. Neurological: CN II-XII in tact, patient was AOx3, speech and language are normal, no unilateralizing weakness, no seizure activity note on physical exam. Sensation was normal. Integementary: no rash, no erythema Psychiatric: mood and affect appropriate Results - Laboratory Findings CBC and BMP: 12/05/16 07:30 12/05/16 07:30 Abnormal Lab Findings: Abnormal Labs 12/02/16 12/02/16 12/02/16 16:00 16:00 17:07 WBC 11.0 H Neutrophils # Lymphocytes # APTT 21.9 L Chloride Carbon Dioxide BUN Creatinine Glucose POC Glucose (mg/dL) Urine Ketones Trace H Ur Leukocyte Esterase Moderate H Urine WBC 8 H Urine Mucus Rare H 12/03/16 12/03/16 12/03/16 07:08 07:08 17:38 WBC Neutrophils # 8.4 H Lymphocytes # APTT Chloride 111 H Carbon Dioxide 20 L BUN Creatinine 0.62 L Glucose 107 H POC Glucose (mg/dL) 116 H Urine Ketones Ur Leukocyte Esterase Urine WBC Urine Mucus 12/03/16 12/04/16 12/04/16 20:01 07:01 07:12 WBC Neutrophils # 7.9 H Lymphocytes # 0.8 L APTT Chloride Carbon Dioxide BUN Creatinine Glucose POC Glucose (mg/dL) 191 H 146 H Urine Ketones Ur Leukocyte Esterase Urine WBC Urine Mucus 12/04/16 12/04/16 12/04/16 07:12 11:56 17:33 WBC Neutrophils # Lymphocytes # APTT Chloride 109 H Carbon Dioxide BUN Creatinine 0.62 L Glucose 148 H POC Glucose (mg/dL) 189 H 179 H Urine Ketones Ur Leukocyte Esterase Urine WBC Urine Mucus 12/04/16 12/05/16 12/05/16 20:26 06:57 07:30 WBC 13.7 H Neutrophils # 12.6 H Lymphocytes # 0.7 L APTT Chloride Carbon Dioxide BUN Creatinine Glucose POC Glucose (mg/dL) 176 H 139 H Urine Ketones Ur Leukocyte Esterase Urine WBC Urine Mucus 12/05/16 12/05/16 12/05/16 07:30 11:47 16:51 WBC Neutrophils # Lymphocytes # APTT Chloride 111 H Carbon Dioxide BUN 24 H Creatinine Glucose 140 H POC Glucose (mg/dL) 158 H 190 H Urine Ketones Ur Leukocyte Esterase Urine WBC Urine Mucus Assessment and Plan (1) Abnormal gait Status: Acute (2) Multiple sclerosis exacerbation Status: Acute (3) Fall at home Status: Acute (4) Weakness generalized Status: Chronic Plan: Patient does have a known diagnosis of multiple sclerosis. He is actively being managed by neurology with the [facility] clinic out of [facility]. On exam the patient's findings are consistent with bilateral lower extremity weakness associated multiple sclerosis flare. CT of the brain was found to be noncontributory as noted previously. Patient stated prior to the incident on the day of occurrence, patient was engaging in more rigorous physical activity. He states that at time of occurrence today, the patient is able to state that his symptoms are consistent with his last multiple sclerosis flare approximately 2 years ago. He is currently receiving IV Solu-Medrol 1000 mg daily. Patient is day 3 of a 5-day course of treatment. Initially there was a question related to the patient having a 3 or a five-day course of treatment. After examining the patient it is more probable that the patient will need a full 5 day course of IV steroids. Patient is currently only 50% return to baseline. However, he is progressing toward baseline at this time. Continue patient's gabapentin, Norc per existing medication regimen. Status: Neurology will continue to follow and provide updates as needed or warranted. Feel free to contact our office with any questions. I discussed the patient's pertinent medical information with Dr. Kuo. He agrees with the plan of care as implemented.
[2016-12-05 20:47] LABS: Glucose,Whole Blood 175 mg/dL (75-99)
[2016-12-06] MEDS: IBUPROFEN 800 MG TAB PO PRN (00:25)
[2016-12-06] MEDS: HYDROcodone/APAP 5-325MG 1 EACH TAB PO PRN ×2 (00:26→23:52)
[2016-12-06] MEDS: methylPREDNISolone SOD SUCCI 250 MG in SODIUM CHLORIDE 0.9% 100 ML IVPB SCH ×6 (00:26→23:52)
[2016-12-06 06:59] LABS: Glucose,Whole Blood 122 mg/dL (75-99)
[2016-12-06 07:38] LABS: Basophils % (A) 0 %; CH 33.8; CHCM 34.6; Eosinophils % (A) 0 %; HDW 2.44; HGB 14.9 gm/dL (13.0-17.5); Luc # (Auto) 0.04; Luc % (Auto) 0; Lymphocytes # (A) 0.7 k/uL (1.0-4.8); Lymphocytes % (A) 6 %; MCH 34.9 pg (25.0-35.0); MCHC 35.5 g/dL (31.0-37.0); MCV 98.2 fL (80.0-100.0); Mean Platelet Volume 7.7; Monocytes # (A) 0.3 k/uL (0-1.0); Monocytes % (A) 3 %; Neutrophils # (A) 10.3 k/uL (1.3-7.7); Neutrophils % (A) 91 %; RBC 4.28 m/uL (4.30-5.90); RDW 12.7 % (11.5-15.5); WBC 11.3 k/uL (3.8-10.6)
[2016-12-06 07:54] LABS: Anion Gap 7 mmol/L; Blood Urea Nitrogen 28 mg/dL (9-20); Calcium 9.3 mg/dL (8.4-10.2); Carbon Dioxide 26 mmol/L (22-30); Chloride 109 mmol/L (98-107); Glucose 125 mg/dL (74-99); Magnesium 2.3 mg/dL (1.6-2.3); Non-African American GFR(MDRD) >60 (>60 ml/min/1.73 sqM); Sodium 142 mmol/L (137-145)
[2016-12-06 08:00] LABS: Potassium 4.1 mmol/L (3.5-5.1)
[2016-12-06] MEDS: PANTOPRAZOLE 40 MG TABLET PO SCH ×2 (08:59→17:47)
[2016-12-06] MEDS: ASPIRIN 81 MG CHEW PO SCH (08:59)
[2016-12-06] MEDS: NICOTINE 21MG/24HR PATCH TRANSDERM SCH (08:59)
[2016-12-06] MEDS: GABAPENTIN 300 MG CAP PO SCH ×4 (09:00→23:52)
[2016-12-06] MEDS: HEPARIN SODIUM,PORCINE 5,000 UNIT/ML 1 ML VIAL SQ SCH ×2 (09:00→20:26)
[2016-12-06] MEDS: INSULIN LISPRO (humaLOG) 300 UNIT/3 ML VIAL SQ SCH ×4 (09:58→20:26)
[2016-12-06] MEDS: SODIUM CHLORIDE 0.45% 1,000 ML IV SCH ×2 (09:58→17:58)
--- NOTE | 2016-12-06 11:41 | P.PN ---
Subjective Patient being treated for MS exacerbation Patient reports some improvement in his strength in both his arms and legs. Denies any chest pain or shortness breath. Denies a nausea or vomiting. He is complaining of some burning with urination. He reports that he had been doing okay for a few days and then the burning has returned. Also he feels that he is not fully empty his bladder. Objective - Vital Signs Vital signs: Vital Signs Temp 97.6 F 12/06/16 07:00 Pulse 50 L 12/06/16 08:00 Resp 16 12/06/16 07:00 BP 127/66 12/06/16 07:00 Pulse Ox 97 12/06/16 07:00 Intake & Output 12/05/16 12/06/16 12/06/16 18:59 06:59 18:59 Intake Total 600 80 Output Total 350 Balance 600 -270 Weight 94.801 kg Intake: Intake, IV Titration 80 Amount Sodium Chloride 0.45% 1, 80 000 ml @ 20 mls/hr IV . Q24H [facility] Rx#:[id number] Oral 600 Output: Urine 350 Other: Voiding Method Urinal Urinal Urinal # Voids 1 # Bowel Movements 1 - Exam Head normocephalic Neck supple Lungs clear to auscultation bilaterally no wheezing or crackles Heart regular rate and rhythm S1-S2, no rub or gallop Abdomen is soft nontender nondistended positive bowel sounds no hepatosplenomegaly Extremities no edema Neuro alert and orientated to 3. Patient difficulty moving right leg without assistance with his right arm. He reports some improvement this. And this has been an issue in the past. - Labs CBC & Chem 7: 12/06/16 06:56 12/06/16 06:56 Labs: Abnormal Lab Results - Last 24 Hours (Table) 12/05/16 12/05/16 12/05/16 Range/Units 11:47 16:51 20:26 WBC (3.8-10.6) k/uL RBC (4.30-5.90) m/uL Neutrophils # (1.3-7.7) k/uL Lymphocytes # (1.0-4.8) k/uL Chloride (98-107) mmol/L BUN (9-20) mg/dL Creatinine (0.66-1.25) mg/dL Glucose (74-99) mg/dL POC Glucose (mg/dL) 158 H 190 H 175 H (75-99) mg/dL 12/06/16 12/06/16 12/06/16 Range/Units 06:56 06:56 06:58 WBC 11.3 H (3.8-10.6) k/uL RBC 4.28 L (4.30-5.90) m/uL Neutrophils # 10.3 H (1.3-7.7) k/uL Lymphocytes # 0.7 L (1.0-4.8) k/uL Chloride 109 H (98-107) mmol/L BUN 28 H (9-20) mg/dL Creatinine 0.62 L (0.66-1.25) mg/dL Glucose 125 H (74-99) mg/dL POC Glucose (mg/dL) 122 H (75-99) mg/dL Microbiology - Last 24 Hours (Table) 12/03/16 17:27 Urine Culture - Final Urine,Voided Assessment and Plan Plan: 1. Acute multiple sclerosis exacerbation: I would start IV Solu-Medrol 250 mg intravenously every 6 hours. I would consult neurology. Patient may need 5 days of IV steroid awaiting neurology evaluation. Stop date 12/08/2016 2. Mechanical fall: Patient had a computed tomography scan of the brain, lumbar spine, and hip x-ray in the emergency room showing no acute findings. 3. Chronic benign prostatic hyperplasia 4. GERD 5. Urinary tract infection: on IV ceftriaxone. Urine culture shows contaminant. Patient now having urinary symptoms again. We'll repeat urinalysis with urine culture 6. Physical debility: I will consult PT/OT 7. Possible urinary retention check postvoid residual patient has history of BPH on Cardura and Flomax DVT prophylaxis subcu heparin I performed an examination of the patient and discussed their management with the physician Prison Keeper. I have reviewed the Physician Prison Keeper's notes and agree with the documented findings and plan of care
[2016-12-06 11:50] LABS: Glucose,Whole Blood 160 mg/dL (75-99)
[2016-12-06 12:11] LABS: Appearance,Urine Clear (Clear); Bacteria,Urine Rare /hpf; Bilirubin,Urine Negative (Negative); Glucose,Urine (UA) Negative (Negative); Ketones,Urine Negative (Negative); Leukocyte Esterase,Urine Negative (Negative); Mucus,Urine Many /hpf; Nitrite,Urine Negative (Negative); Particle Count 11822; Protein,Urine 1+ (Negative); RBC,Urine 12 /hpf (0-5); Specific Gravity,Urine 1.029 (1.001-1.035); Squamous Epithelial Cell,Urine 1 /hpf (0-4); UA Billing (MACRO vs. MICRO) MICRO; WBC,Urine 3 /hpf (0-5)
[2016-12-06 16:50] LABS: Glucose,Whole Blood 135 mg/dL (75-99)
[2016-12-06 20:23] LABS: Glucose,Whole Blood 210 mg/dL (75-99)
[2016-12-06] MEDS: TAMSULOSIN 0.4 MG CAP.ER.24H PO SCH (20:25)
[2016-12-06] MEDS: DOXAZOSIN 2 MG TAB PO SCH (20:25)
--- NOTE | 2016-12-06 23:34 | P.PN ---
Subjective Principal diagnosis: MS exacerbation Patient is a 51-year-old male being followed by neurology for generalized weakness and MS exacerbation. Patient has complaints of gradually worsening weakness over approximately last 4-5 days. Patient does have a known diagnosis of multiple sclerosis. As the patient's weakness progressed it resulted in a fall approximately 4-5 days ago while attempting to ambulate. Patient's exacerbating factors include increased physical activity and strenuous activity. Alleviating factors include rest, IV steroid and gabapentin. Patient does have a neurologist at a neighboring facility. Patient states that his current neurologist is waiting to qualify the patient for Ocrevus intiation. This was to occur within the last 4-6 weeks but has been delayed due to insurance approval. Patient was seated in bedside chair, alert and oriented 3 and in no acute distress. Patient states he is approximately 7580% return to baseline. Patient still has some generalized weakness especially in the lower extremities but he is significantly improved over previous day. Objective - Vital Signs Vital signs: Vital Signs Temp 97.9 F 12/06/16 22:14 Pulse 52 L 12/06/16 22:14 Resp 18 12/06/16 22:14 BP 128/86 12/06/16 22:14 Pulse Ox 96 12/06/16 22:14 Intake & Output 12/06/16 12/06/16 12/07/16 06:59 18:59 06:59 Intake Total 80 260 240 Output Total 350 800 Balance -270 -540 240 Weight 94.801 kg Intake: Intake, IV Titration 80 260 Amount Sodium Chloride 0.45% 1, 80 160 000 ml @ 20 mls/hr IV . Q24H [facility] Rx#:[id number] methylPREDNISolone SOD 100 SUCCI 250 mg In Sodium Chloride 0.9% 100 ml @ 100 mls/hr IVPB Q6HR [facility] Rx#:[id number] Oral 240 Output: Urine 350 350 Post Void Residual 450 Other: Voiding Method Urinal Urinal # Voids 1 2 # Bowel Movements 1 - Exam Constitutional: AOx3, cooperative HEENT: NC/AT, no facial asymmetry is seen. Throat: Supple, no masses Respiratory: No increased work of breathing Cardiac: Regular rate and Rhythm GI: non tender, non distended Musculoskeletal: Newspaper Journalist strengths are equal bilaterally 5/5, Lower extremity strengths are equal bilaterally at 5/5. Neurological: CN II-XII in tact, patient was AOx3, speech and language are normal, no unilateralizing weakness, no seizure activity note on physical exam. Sensation was normal. Integementary: no rash, no erythema Psychiatric: mood and affect appropriate - Constitutional Constitutional Comment(s): Systems not noted in HPI considered negative - Labs CBC & Chem 7: 12/06/16 06:56 12/06/16 06:56 Labs: Abnormal Lab Results - Last 24 Hours (Table) 12/06/16 12/06/16 12/06/16 Range/Units 06:56 06:56 06:58 WBC 11.3 H (3.8-10.6) k/uL RBC 4.28 L (4.30-5.90) m/uL Neutrophils # 10.3 H (1.3-7.7) k/uL Lymphocytes # 0.7 L (1.0-4.8) k/uL Chloride 109 H (98-107) mmol/L BUN 28 H (9-20) mg/dL Creatinine 0.62 L (0.66-1.25) mg/dL Glucose 125 H (74-99) mg/dL POC Glucose (mg/dL) 122 H (75-99) mg/dL Urine Protein (Negative) Urine RBC (0-5) /hpf Urine Bacteria (None) /hpf Urine Mucus (None) /hpf 12/06/16 12/06/16 12/06/16 Range/Units 11:40 11:49 16:49 WBC (3.8-10.6) k/uL RBC (4.30-5.90) m/uL Neutrophils # (1.3-7.7) k/uL Lymphocytes # (1.0-4.8) k/uL Chloride (98-107) mmol/L BUN (9-20) mg/dL Creatinine (0.66-1.25) mg/dL Glucose (74-99) mg/dL POC Glucose (mg/dL) 160 H 135 H (75-99) mg/dL Urine Protein 1+ H (Negative) Urine RBC 12 H (0-5) /hpf Urine Bacteria Rare H (None) /hpf Urine Mucus Many H (None) /hpf 12/06/16 Range/Units 20:22 WBC (3.8-10.6) k/uL RBC (4.30-5.90) m/uL Neutrophils # (1.3-7.7) k/uL Lymphocytes # (1.0-4.8) k/uL Chloride (98-107) mmol/L BUN (9-20) mg/dL Creatinine (0.66-1.25) mg/dL Glucose (74-99) mg/dL POC Glucose (mg/dL) 210 H (75-99) mg/dL Urine Protein (Negative) Urine RBC (0-5) /hpf Urine Bacteria (None) /hpf Urine Mucus (None) /hpf Microbiology - Last 24 Hours (Table) 12/06/16 11:40 Urine Culture - Preliminary Urine,Clean Catch 12/03/16 17:27 Urine Culture - Final Urine,Voided Assessment and Plan (1) Abnormal gait Status: Acute (2) Multiple sclerosis exacerbation Status: Acute (3) Fall at home Status: Acute (4) Weakness generalized Status: Chronic Plan: Patient does have a known diagnosis of multiple sclerosis. He is actively being managed by neurology with the [facility] clinic out of [facility]. On exam the patient's findings are consistent with bilateral lower extremity weakness associated multiple sclerosis flare. CT of the brain was found to be noncontributory as noted previously. Patient stated prior to the incident on the day of occurrence, patient was engaging in more rigorous physical activity. He states that at time of occurrence today, the patient is able to state that his symptoms are consistent with his last multiple sclerosis flare approximately 2 years ago. He is currently receiving IV Solu-Medrol 1000 mg daily. Patient is day 4 of a 5-day course of treatment. Patient will continue with day 5 of IV steroid infusion. Patient is currently 7580 percent returned to baseline. He is progressing toward baseline at this time. Continue patient' s gabapentin, [place] per existing medication regimen. Status: Neurology will continue to follow On an as-needed basis. Patient can be cleared for discharge from a neurological standpoint once he has completed his fifth day of IV steroid infusion. Patient to follow-up in our clinic within 10-14 days post discharge for further management. I discussed the patient's pertinent medical information with Dr. Kuo. He agrees with the plan of care as implemented.
[2016-12-07] MEDS: CYCLOBENZAPRINE 10 MG TAB PO PRN ×2 (00:11→23:50)
[2016-12-07] MEDS: METHYL SALICYLATE/MENTHOL CREAM 5 OZ TOPICAL PRN (05:40)
[2016-12-07] MEDS: methylPREDNISolone SOD SUCCI 250 MG in SODIUM CHLORIDE 0.9% 100 ML IVPB SCH ×4 (05:44→23:50)
[2016-12-07] MEDS: INSULIN LISPRO (humaLOG) 300 UNIT/3 ML VIAL SQ SCH ×4 (07:36→20:34)
[2016-12-07 07:38] LABS: Glucose,Whole Blood 126 mg/dL (75-99)
[2016-12-07 08:07] LABS: Basophils % (A) 0 %; CH 33.5; CHCM 34.2; Eosinophils % (A) 0 %; HCT 42.7 % (39.0-53.0); HDW 2.42; HGB 14.5 gm/dL (13.0-17.5); Luc # (Auto) 0.05; Luc % (Auto) 1; Lymphocytes # (A) 0.8 k/uL (1.0-4.8); Lymphocytes % (A) 8 %; MCH 33.5 pg (25.0-35.0); MCV 98.6 fL (80.0-100.0); Mean Platelet Volume 8.1; Monocytes # (A) 0.3 k/uL (0-1.0); Monocytes % (A) 3 %; Neutrophils % (A) 88 %; RBC 4.33 m/uL (4.30-5.90); RDW 12.7 % (11.5-15.5); WBC 9.1 k/uL (3.8-10.6); WBC (Perox) 9.17
[2016-12-07 08:14] LABS: Anion Gap 6 mmol/L; Blood Urea Nitrogen 29 mg/dL (9-20); Calcium 9.1 mg/dL (8.4-10.2); Carbon Dioxide 27 mmol/L (22-30); Chloride 107 mmol/L (98-107); Glucose 123 mg/dL (74-99); Magnesium 2.4 mg/dL (1.6-2.3); Non-African American GFR(MDRD) >60 (>60 ml/min/1.73 sqM); Potassium 4.2 mmol/L (3.5-5.1); Sodium 140 mmol/L (137-145)
[2016-12-07] MEDS: GABAPENTIN 300 MG CAP PO SCH ×3 (08:16→16:06)
[2016-12-07] MEDS: ASPIRIN 81 MG CHEW PO SCH (08:16)
[2016-12-07] MEDS: IBUPROFEN 800 MG TAB PO PRN ×2 (08:16→23:51)
[2016-12-07] MEDS: PANTOPRAZOLE 40 MG TABLET PO SCH ×2 (08:16→16:06)
[2016-12-07] MEDS: HEPARIN SODIUM,PORCINE 5,000 UNIT/ML 1 ML VIAL SQ SCH ×2 (08:16→20:28)
[2016-12-07] MEDS: HYDROcodone/APAP 5-325MG 1 EACH TAB PO PRN ×2 (08:17→23:50)
[2016-12-07] MEDS: NICOTINE 21MG/24HR PATCH TRANSDERM SCH (08:17)
--- NOTE | 2016-12-07 10:57 | P.PN ---
Subjective Patient being treated for MS exacerbation Patient reports some improvement in his strength in both his arms and legs. Denies any chest pain or shortness breath. Denies a nausea or vomiting. He is complaining of some burning with urination. He reports that he had been doing okay for a few days and then the burning has returned. Also he feels that he is not fully empty his bladder. Objective - Vital Signs Vital signs: Vital Signs Temp 97.7 F 12/07/16 07:00 Pulse 49 L 12/07/16 07:00 Resp 16 12/07/16 08:00 BP 127/68 12/07/16 07:00 Pulse Ox 98 12/07/16 07:00 Intake & Output 12/06/16 12/07/16 12/07/16 18:59 06:59 18:59 Intake Total 260 830 Output Total 800 Balance -540 830 Weight 94.801 kg Intake: Intake, IV Titration 260 Amount Sodium Chloride 0.45% 1, 160 000 ml @ 20 mls/hr IV . Q24H [facility] Rx#:[id number] methylPREDNISolone SOD 100 SUCCI 250 mg In Sodium Chloride 0.9% 100 ml @ 100 mls/hr IVPB Q6HR [facility] Rx#:[id number] Oral 830 Output: Urine 350 Post Void Residual 450 Other: Voiding Method Urinal Urinal Urinal # Voids 1 3 # Bowel Movements 1 - Exam In general patient is alert and oriented 3 in no apparent distress HEENT head normocephalic and atraumatic Neck is supple no JVD no goiter no lymphadenopathy Chest exam reveals a few scattered crackles no wheezing Cardiac exam reveals regular heart sounds S1 and S2 no gallops no murmurs Abdomen is soft nontender no organomegaly with normal bowel sounds Extremity exam reveals no edema no cyanosis or clubbing Neuro exam reveals right lower extremity weakness which is chronic - Labs CBC & Chem 7: 12/07/16 07:12 12/07/16 07:12 Labs: Abnormal Lab Results - Last 24 Hours (Table) 12/06/16 12/06/16 12/06/16 Range/Units 11:40 11:49 16:49 Neutrophils # (1.3-7.7) k/uL Lymphocytes # (1.0-4.8) k/uL BUN (9-20) mg/dL Creatinine (0.66-1.25) mg/dL Glucose (74-99) mg/dL POC Glucose (mg/dL) 160 H 135 H (75-99) mg/dL Magnesium (1.6-2.3) mg/dL Urine Protein 1+ H (Negative) Urine RBC 12 H (0-5) /hpf Urine Bacteria Rare H (None) /hpf Urine Mucus Many H (None) /hpf 12/06/16 12/07/16 12/07/16 Range/Units 20:22 07:00 07:12 Neutrophils # 8.0 H (1.3-7.7) k/uL Lymphocytes # 0.8 L (1.0-4.8) k/uL BUN (9-20) mg/dL Creatinine (0.66-1.25) mg/dL Glucose (74-99) mg/dL POC Glucose (mg/dL) 210 H 126 H (75-99) mg/dL Magnesium (1.6-2.3) mg/dL Urine Protein (Negative) Urine RBC (0-5) /hpf Urine Bacteria (None) /hpf Urine Mucus (None) /hpf 12/07/16 Range/Units 07:12 Neutrophils # (1.3-7.7) k/uL Lymphocytes # (1.0-4.8) k/uL BUN 29 H (9-20) mg/dL Creatinine 0.61 L (0.66-1.25) mg/dL Glucose 123 H (74-99) mg/dL POC Glucose (mg/dL) (75-99) mg/dL Magnesium 2.4 H (1.6-2.3) mg/dL Urine Protein (Negative) Urine RBC (0-5) /hpf Urine Bacteria (None) /hpf Urine Mucus (None) /hpf Microbiology - Last 24 Hours (Table) 12/06/16 11:40 Urine Culture - Preliminary Urine,Clean Catch Assessment and Plan Plan: 1. Acute multiple sclerosis exacerbation: I would start IV Solu-Medrol 250 mg intravenously every 6 hours. I would consult neurology. Patient may need 5 days of IV steroid awaiting neurology evaluation. Stop date 12/08/2016 2. Mechanical fall: Patient had a computed tomography scan of the brain, lumbar spine, and hip x-ray in the emergency room showing no acute findings. 3. Chronic benign prostatic hyperplasia 4. GERD 5. Urinary tract infection: on IV ceftriaxone. Urine culture shows contaminant. Patient now having urinary symptoms again. We'll repeat urinalysis with urine culture 6. Physical debility: I will consult PT/OT 7. Possible urinary retention check postvoid residual patient has history of BPH on Cardura and Flomax continue current management plan for discharge tomorrow DVT prophylaxis subcu heparin
[2016-12-07 12:15] LABS: Glucose,Whole Blood 142 mg/dL (75-99)
[2016-12-07 17:12] LABS: Glucose,Whole Blood 191 mg/dL (75-99)
[2016-12-07] MEDS: SODIUM CHLORIDE 0.45% 1,000 ML IV SCH (18:30)
[2016-12-07] MEDS: TAMSULOSIN 0.4 MG CAP.ER.24H PO SCH (20:28)
[2016-12-07] MEDS: DOXAZOSIN 2 MG TAB PO SCH (20:28)
[2016-12-07 20:38] LABS: Glucose,Whole Blood 190 mg/dL (75-99)
[2016-12-08] MEDS: GABAPENTIN 300 MG CAP PO SCH ×3 (00:02→13:27)
[2016-12-08] MEDS: methylPREDNISolone SOD SUCCI 250 MG in SODIUM CHLORIDE 0.9% 100 ML IVPB SCH ×2 (05:37→14:37)
[2016-12-08 07:20] LABS: Glucose,Whole Blood 129 mg/dL (75-99)
[2016-12-08 08:15] VITALS: BP 135/78; PULSE 49; RESP 16; TEMP 98.2
[2016-12-08] MEDS: HEPARIN SODIUM,PORCINE 5,000 UNIT/ML 1 ML VIAL SQ SCH (08:39)
[2016-12-08] MEDS: ASPIRIN 81 MG CHEW PO SCH (08:39)
[2016-12-08] MEDS: INSULIN LISPRO (humaLOG) 300 UNIT/3 ML VIAL SQ SCH ×2 (08:39→13:26)
[2016-12-08] MEDS: PANTOPRAZOLE 40 MG TABLET PO SCH (08:40)
[2016-12-08 09:40] LABS: Basophils % (A) 0 %; CH 34.3; CHCM 34.2; Eosinophils % (A) 0 %; HCT 47.1 % (39.0-53.0); HGB 15.5 gm/dL (13.0-17.5); Luc # (Auto) 0.02; Luc % (Auto) 0; Lymphocytes # (A) 0.5 k/uL (1.0-4.8); Lymphocytes % (A) 4 %; MCH 33.1 pg (25.0-35.0); MCHC 32.8 g/dL (31.0-37.0); MCV 100.8 fL (80.0-100.0); Monocytes # (A) 0.2 k/uL (0-1.0); Monocytes % (A) 2 %; Neutrophils # (A) 10.5 k/uL (1.3-7.7); Neutrophils % (A) 93 %; RBC 4.67 m/uL (4.30-5.90); RDW 12.8 % (11.5-15.5); WBC 11.3 k/uL (3.8-10.6); WBC (Perox) 11.41
[2016-12-08 09:51] LABS: Anion Gap 7 mmol/L; Blood Urea Nitrogen 22 mg/dL (9-20); Carbon Dioxide 27 mmol/L (22-30); Chloride 107 mmol/L (98-107); Glucose 157 mg/dL (74-99); Magnesium 2.4 mg/dL (1.6-2.3); Non-African American GFR(MDRD) >60 (>60 ml/min/1.73 sqM); Potassium 3.8 mmol/L (3.5-5.1); Sodium 141 mmol/L (137-145)
[2016-12-08 12:11] LABS: Glucose,Whole Blood 127 mg/dL (75-99)
[2016-12-08] MEDS: NICOTINE 21MG/24HR PATCH TRANSDERM SCH (13:26)
--- NOTE | 2016-12-08 14:34 | P.DS ---
Providers Date of admission: 12/04/16 15:51 Expected date of discharge: 12/08/16 Attending physician: Danyelle Hampton Consults: 12/03/16 12:48 Consult Physician Routine Consulting Provider: Casimiro Kuo Consult Reason/Comments: MS exacerbation Do you want consulting provider notified?: Already Contacted Primary care physician: Stated None Hospital Course: Diagnoses on discharge 1. Acute multiple sclerosis exacerbation: I would start IV Solu-Medrol 250 mg intravenously every 6 hours. I would consult neurology. Patient may need 5 days of IV steroid awaiting neurology evaluation. Stop date 12/08/2016 2. Mechanical fall: Patient had a computed tomography scan of the brain, lumbar spine, and hip x-ray in the emergency room showing no acute findings. 3. Chronic benign prostatic hyperplasia 4. GERD 5. Urinary tract infection: on IV ceftriaxone. Urine culture shows contaminant. Patient now having urinary symptoms again. We'll repeat urinalysis with urine culture 6. Physical debility: I will consult PT/OT 7. urinary retention check postvoid residual patient has history of BPH on Cardura and Flomax, given refill Hospital course Patient is a 51-year-old male with past medical history noted below significant for multiple sclerosis who presented to the emergency room generalized weakness and a fall. Patient said that he did not see a neurologist for the past year. He used to follow-up with a neurologist out of town in [place]. He said for the past few days he noted progressive weakness and fatigue. He said that his muscles are given up on him. He reported this is a similar presentation to what happened to him approximately a year ago when he was admitted to the hospital and was treated with IV steroids. Patient said that he was trying to get out of the bathroom and he had a fall secondary to severe weakness. He was evaluated in the emergency room and multiple x-ray as well as a computed tomography scan of the brain showed no acute findings. Patient was given 1 dose of IV Solu-Medrol 125 mg in the ER and was admitted to the hospital for further evaluation. He is awake and alert today. He is not feeling any better compared to yesterday. Patient was admitted to medical floor he received IV Solu-Medrol 250 mg every 6 hours for 5 days symptoms improved significantly, he was seen by Dr. Kuo in neurology consultation. Patient was having difficulty was urination at the beginning of the admission with high post void residual however his symptoms improved he was continued on Flomax and Cardura and did not required an indwelling catheter during this admission. Patient is a smoker he was given nicotine patches during this admission he was counseled in length and more than 10 minutes during this admission for her smoking cessation he was given a prescription for nicotine patches 21 g and change daily at the time of discharge. Follow-up with primary care physician within one week follow-up with neurology in 1-2 weeks Patient Condition at Discharge: Fair Plan - Discharge Summary New Discharge Prescriptions: New methylPREDNISolone Dose Pack [Medrol Dose Pack] 4 mg PO DIRECTED #21 package Nicotine 21Mg/24Hr Patch [Habitrol] 1 patch TRANSDERM DAILY patch Continue Tamsulosin HCl [Flomax] 0.8 mg PO HS Cyclobenzaprine [Flexeril] 10 mg PO TID PRN PRN Reason: Muscle Pain Gabapentin [Neurontin] 600 mg PO QID Aspirin 81 mg PO DAILY Ergocalciferol [Vitamin D2 (DRISDOL)] 1 tab PO QMONTH Docusate [Colace] 200 mg PO DAILY PRN PRN Reason: Constipation HYDROcodone/APAP 5-325MG [[place] 5-325] 1 tab PO BID PRN #60 tab PRN Reason: Pain Ibuprofen [Motrin] 800 mg PO BID PRN #0 PRN Reason: Pain Oxybutynin Chloride [Ditropan] 5 mg PO BID Omeprazole 20 mg PO BID Doxazosin Mesylate [Cardura] 2 mg PO HS Cyanocobalamin [Vitamin B-12] 500 mcg PO DAILY Clotrimazole [Lotrimin AF] 1 applic TOPICAL TID PRN PRN Reason: Skin Irritation Discharge Medication List Aspirin 81 mg PO DAILY 09/29/13 [History] Cyclobenzaprine [Flexeril] 10 mg PO TID PRN 09/29/13 [History] Gabapentin [Neurontin] 600 mg PO QID 09/29/13 [History] Tamsulosin HCl [Flomax] 0.8 mg PO HS 09/29/13 [History] Ergocalciferol [Vitamin D2 (DRISDOL)] 1 tab PO QMONTH 04/25/14 [History] Docusate [Colace] 200 mg PO DAILY PRN 04/05/15 [History] HYDROcodone/APAP 5-325MG [[place] 5-325] 1 tab PO BID PRN #60 tab 04/11/15 [Rx] Ibuprofen [Motrin] 800 mg PO BID PRN #0 04/11/15 [Rx] Oxybutynin Chloride [Ditropan] 5 mg PO BID 06/18/16 [History] Clotrimazole [Lotrimin AF] 1 applic TOPICAL TID PRN 12/02/16 [History] Cyanocobalamin [Vitamin B-12] 500 mcg PO DAILY 12/02/16 [History] Doxazosin Mesylate [Cardura] 2 mg PO HS 12/02/16 [History] Omeprazole 20 mg PO BID 12/02/16 [History] Nicotine 21Mg/24Hr Patch [Habitrol] 1 patch TRANSDERM DAILY patch 12/08/16 [Rx] methylPREDNISolone Dose Pack [Medrol Dose Pack] 4 mg PO DIRECTED #21 package 12/08/16 [Rx] Follow up Appointment(s)/Referral(s): None,Stated [Primary Care Provider] - 1-2 days
== END 2016-12-08 16:03 | disposition home or self-care (01) | DRG 59 ==
LOC: EC 14:19 → 5MS5E 18:04 → OBSVTOIN 12-04 15:51
PROVIDERS: ADMIT Internal Medicine; ATTEND Internal Medicine
DX: G35 Multiple sclerosis (principal); N39.0 Urinary tract infection, site not specified; G93.89 Other specified disorders of brain; F17.200 Nicotine dependence, unspecified, uncomplicated; G47.30 Sleep apnea, unspecified; H40.9 Unspecified glaucoma; K21.9 Gastro-esophageal reflux disease without esophagitis; N40.1 Benign prostatic hyperplasia with lower urinary tract symptoms; W19.XXXA Unspecified fall, initial encounter; Y92.009 Unspecified place in unspecified non-institutional (private) residence as the place of occurrence of the external cause; Z79.82 Long term (current) use of aspirin; Z79.899 Other long term (current) drug therapy; Z80.0 Family history of malignant neoplasm of digestive organs; Z83.3 Family history of diabetes mellitus; Z88.0 Allergy status to penicillin; R33.8 Other retention of urine
CPT/HCPCS: 36415; 70450; 71020; 72100; 73502; 80048; 80053; 81001; 82550; 82553; 83036; 83735; 84443; 84484; 85025; 85610; 85730; 87086; 93005; 94760; 96361; 96372; 96374; 96375; 96376; 99285

== ENCOUNTER 2017-04-07 14:25 | Observation (INO) | payer OTHER ==
[2017-04-07] MEDS ORDERED: SODIUM CHLORIDE 0.9% 1,000 ML IV STA ×2 (14:47)
[2017-04-07] MEDS ORDERED: IPRATROPIUM-ALBUTEROL 3 ML NEB INHALATION STA (14:48)
[2017-04-07 15:03] LABS: Basophils # (A) 0.1 k/uL (0-0.2); Basophils % (A) 1 %; CHCM 33.7; Eosinophils # (A) 0.7 k/uL (0-0.7); Eosinophils % (A) 9 %; HCT 50.8 % (39.0-53.0); HDW 2.49; HGB 16.7 gm/dL (13.0-17.5); Luc # (Auto) 0.12; Luc % (Auto) 1; Lymphocytes # (A) 2.1 k/uL (1.0-4.8); Lymphocytes % (A) 25 %; MCH 33.4 pg (25.0-35.0); MCHC 32.9 g/dL (31.0-37.0); MCV 101.3 fL (80.0-100.0); Mean Platelet Volume 7.1; Monocytes # (A) 0.5 k/uL (0-1.0); Monocytes % (A) 6 %; Neutrophils % (A) 58 %; RBC 5.02 m/uL (4.30-5.90); RDW 12.3 % (11.5-15.5); WBC 8.6 k/uL (3.8-10.6); WBC (Perox) 8.57
--- NOTE | 2017-04-07 15:09 | ED ---
Weakness HPI - General Chief complaint: Weakness Stated complaint: Weakness Time Seen by Provider: 04/07/17 14:28 Source: patient, EMS, RN notes reviewed, old records reviewed Mode of arrival: EMS Limitations: no limitations - History of Present Illness Initial comments: Patient is a 52-year-old male presents emergency Department chief complaint of increased weakness over the past week. Patient states he has history of MS. Patient states that he has had no specific falls. He states that he has been unable to feed himself, or able to take care of his daily hygiene needs. He reports that he has to rely on his daughter to do this and forearm. Patient states that he has history of COPD as well as a heavy smoker. Patient states that he is supposed to take breathing treatments but he has been too weak to even want to do this. Patient states that he has had no chest pain, abdominal pain nausea or vomiting. He reports that he has no appetite. Patient states that he has had no falls, denies any head or neck injuries. Patient states that he follows with a urologist and neurologist. Patient states that he is typically in a wheelchair. He reports that he has normal sensation in his legs distally, but has weakness with movement. - Related Data Home Medications Medication Instructions Recorded Confirmed Aspirin 81 mg PO DAILY 09/29/13 04/07/17 Gabapentin [Neurontin] 600 mg PO QID 09/29/13 04/07/17 Ergocalciferol [Vitamin D2 1 tab PO QMONTH 04/25/14 04/07/17 (DRISDOL)] Docusate [Colace] 200 mg PO DAILY PRN 04/05/15 04/07/17 Oxybutynin Chloride [Ditropan] 5 mg PO BID 06/18/16 04/07/17 Clotrimazole [Lotrimin AF] 1 applic TOPICAL TID PRN 12/02/16 04/07/17 Cyanocobalamin [Vitamin B-12] 500 mcg PO DAILY 12/02/16 04/07/17 Doxazosin Mesylate [Cardura] 2 mg PO HS 12/02/16 04/07/17 Omeprazole 20 mg PO BID 12/02/16 04/07/17 DULoxetine HCL [Cymbalta] 30 mg PO DAILY 04/07/17 04/07/17 Previous Rx's Medication Instructions Recorded HYDROcodone/APAP 5-325MG [[place] 1 tab PO BID PRN #60 tab 04/11/15 5-325] Ibuprofen [Motrin] 800 mg PO BID PRN #0 04/11/15 Allergies Allergy/AdvReac Type Severity Reaction Status Date / Time bee venom protein (honey bee) Allergy Anaphylaxis Verified 04/07/17 15:05 Penicillins Allergy Rash/Hives Verified 04/07/17 15:05 Review of Systems ROS Statement: Those systems with pertinent positive or pertinent negative responses have been documented in the HPI. ROS Other: All systems not noted in ROS Statement are negative. Past Medical History Past Medical History: GERD/Reflux, Musculoskeletal Disorder, Prostate Disorder, Sleep Apnea/CPAP/BIPAP Additional Past Medical History / Comment(s): josé miguel Barlow- 15 years ago,won't use machine,norm for pt-he is able able to walk 5 steps with walker but last few days to weak to even lift legs, unable to walk or stand. Pt states has memory problems related to Multiple Sclerosis. History of Any Multi-Drug Resistant Organisms: None Reported Past Surgical History: No Surgical Hx Reported Additional Past Surgical History / Comment(s): laser eye sx oliva eyes( glaucoma) [place] teeth extraction. Past Anesthesia/Blood Transfusion Reactions: No Reported Reaction Past Psychological History: Anxiety, Depression Smoking Status: Current every day smoker Past Alcohol Use History: None Reported Past Drug Use History: Marijuana - Past Family History Father Family Medical History: Cancer Additional Family Medical History / Comment(s): liver cancer Mother Family Medical History: Diabetes Mellitus, Deep Vein Thrombosis (DVT) Sister(s) Family Medical History: Cancer General Exam - General Exam Comments Initial Comments: 52-year-old male. Patient is pleasant. Patient does not appear to be in any acute distress. Limitations: no limitations General appearance: alert, in no apparent distress Head exam: Present: atraumatic, normocephalic, normal inspection Eye exam: Present: normal appearance, PERRL, EOMI. Absent: scleral icterus, conjunctival injection, periorbital swelling ENT exam: Present: normal exam, mucous membranes moist Neck exam: Present: normal inspection, full ROM. Absent: tenderness, meningismus, lymphadenopathy Respiratory exam: Present: wheezes (Patient has rhonchi and wheezing so bilaterally. History of COPD. Reports that he has no increased shortness of breath.), rhonchi. Absent: normal lung sounds bilaterally, respiratory distress , rales, stridor Cardiovascular Exam: Present: regular rate, normal rhythm, normal heart sounds. Absent: systolic murmur, diastolic murmur, rubs, gallop, clicks GI/Abdominal exam: Present: soft Extremities exam: Present: normal inspection, full ROM, normal capillary refill. Absent: tenderness, pedal edema, joint swelling, calf tenderness Back exam: Present: normal inspection Neurological exam: Present: alert, oriented X3, CN II-XII intact, other. Absent : normal gait (Reports that he is wheelchair bound. Has diminished strength in bilateral lower extremities. 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.) Expanded Patient oriented to: Present: person, place, time Speech: Present: fluid speech Cranial nerves: EOM's Intact: Normal, Facial Sensation: Normal Cerebellar function: Finger to Nose: Normal Upper motor neuron: Pronator Drift: Normal Sensory exam: Upper Extremity Light Touch: Normal, Lower Extremity Light Touch: Normal Motor strength exam: RUE: 5, LUE: 5, RLE: 5, LLE: 5 Eye Response: (4) open spontaneously Motor Response: (6) obeys commands Verbal Response: (5) oriented [place] Total: 15 Psychiatric exam: Present: normal affect, normal mood Skin exam: Present: warm, dry, intact, normal color. Absent: rash Course Vital Signs 04/07/17 04/07/17 04/07/17 14:28 14:48 15:08 Temperature 98.2 F Pulse Rate 69 70 81 Respiratory 18 16 Rate Blood Pressure 125/68 O2 Sat by Pulse 98 99 Oximetry 04/07/17 04/07/17 15:19 16:17 Temperature Pulse Rate 65 70 Respiratory 18 Rate Blood Pressure 133/74 O2 Sat by Pulse 99 Oximetry Medical Decision Making - Medical Decision Making Male with a chief complaint of increased weakness for the past week. Patient reports she's been weak that he is unable to feed himself, and unable to reduce tenderness basic hygiene. He is wheelchair bound, though reports worsening weakness in his bilateral lower extremities. He also is "his arms. No pronator drift. No focal neurological deficits. Patient reports that he also has a straight cath himself. Patient given IV fluids, lab work obtained. He is a heavy smoker, he did have some rhonchi in bilateral lung saleem as well. Given a DuoNeb treatment. Chest x-ray shows no pneumonia. He complains of no chest pain or headaches. Patient's EKG was also reviewed and normal. At this time will admit the patient for MS exacerbation, started on Solu-Medrol 250 mg. Patient understands treatment plan and admission. Discussed this with Dr. Huston He discussed this with Dr. Hampton. We'll also consult neurology aviation consultant. - Lab Data Result diagrams: 04/07/17 14:45 04/07/17 14:45 Lab Results 04/07/17 04/07/17 04/07/17 Range/Units 14:45 14:45 14:45 WBC 8.6 (3.8-10.6) k/uL RBC 5.02 (4.30-5.90) m/uL Hgb 16.7 (13.0-17.5) gm/dL Hct 50.8 (39.0-53.0) % MCV 101.3 H (80.0-100.0) fL MCH 33.4 (25.0-35.0) pg MCHC 32.9 (31.0-37.0) g/dL RDW 12.3 (11.5-15.5) % Plt Count 204 (150-450) k/uL Neutrophils % 58 % Lymphocytes % 25 % Monocytes % 6 % Eosinophils % 9 % Basophils % 1 % Neutrophils # 5.0 (1.3-7.7) k/uL Lymphocytes # 2.1 (1.0-4.8) k/uL Monocytes # 0.5 (0-1.0) k/uL Eosinophils # 0.7 (0-0.7) k/uL Basophils # 0.1 (0-0.2) k/uL PT 10.5 (9.0-12.0) sec INR 1.0 (<1.2) APTT 23.8 (22.0-30.0) sec Sodium (137-145) mmol/L Potassium (3.5-5.1) mmol/L Chloride (98-107) mmol/L Carbon Dioxide (22-30) mmol/L Anion Gap mmol/L BUN (9-20) mg/dL Creatinine (0.66-1.25) mg/dL Est GFR (MDRD) Af Amer (>60 ml/min/1.73 sqM) Est GFR (MDRD) Non-Af (>60 ml/min/1.73 sqM) Glucose (74-99) mg/dL Plasma Lactic Acid Brian (0.7-2.0) mmol/L Calcium (8.4-10.2) mg/dL Magnesium (1.6-2.3) mg/dL Total Bilirubin (0.2-1.3) mg/dL AST (17-59) U/L ALT (21-72) U/L Alkaline Phosphatase (38-126) U/L Total Creatine Kinase 44 L (55-170) U/L CK-MB (CK-2) 0.3 (0.0-2.4) ng/mL CK-MB (CK-2) Rel Index 0.7 Troponin I <0.012 (0.000-0.034) ng/mL Total Protein (6.3-8.2) g/dL Albumin (3.5-5.0) g/dL Urine Color Urine Appearance (Clear) Urine pH (5.0-8.0) Ur Specific [place] (1.001-1.035) Urine Protein (Negative) Urine Glucose (UA) (Negative) Urine Ketones (Negative) Urine Blood (Negative) Urine Nitrite (Negative) Urine Bilirubin (Negative) Urine Urobilinogen (<2.0) mg/dL Ur Leukocyte Esterase (Negative) Urine RBC (0-5) /hpf Urine WBC (0-5) /hpf Ur Squamous Epith Cells (0-4) /hpf Urine Mucus (None) /hpf 04/07/17 04/07/17 04/07/17 Range/Units 14:45 15:04 15:41 WBC (3.8-10.6) k/uL RBC (4.30-5.90) m/uL Hgb (13.0-17.5) gm/dL Hct (39.0-53.0) % MCV (80.0-100.0) fL MCH (25.0-35.0) pg MCHC (31.0-37.0) g/dL RDW (11.5-15.5) % Plt Count (150-450) k/uL Neutrophils % % Lymphocytes % % Monocytes % % Eosinophils % % Basophils % % Neutrophils # (1.3-7.7) k/uL Lymphocytes # (1.0-4.8) k/uL Monocytes # (0-1.0) k/uL Eosinophils # (0-0.7) k/uL Basophils # (0-0.2) k/uL PT (9.0-12.0) sec INR (<1.2) APTT (22.0-30.0) sec Sodium 141 (137-145) mmol/L Potassium 3.8 (3.5-5.1) mmol/L Chloride 107 (98-107) mmol/L Carbon Dioxide 27 (22-30) mmol/L Anion Gap 7 mmol/L BUN 15 (9-20) mg/dL Creatinine 0.70 (0.66-1.25) mg/dL Est GFR (MDRD) Af Amer >60 (>60 ml/min/1.73 sqM) Est GFR (MDRD) Non-Af >60 (>60 ml/min/1.73 sqM) Glucose 55 L (74-99) mg/dL Plasma Lactic Acid Brian 1.6 (0.7-2.0) mmol/L Calcium 9.4 (8.4-10.2) mg/dL Magnesium 2.2 (1.6-2.3) mg/dL Total Bilirubin 0.9 (0.2-1.3) mg/dL AST 35 (17-59) U/L ALT 16 L (21-72) U/L Alkaline Phosphatase 63 (38-126) U/L Total Creatine Kinase (55-170) U/L CK-MB (CK-2) (0.0-2.4) ng/mL CK-MB (CK-2) Rel Index Troponin I (0.000-0.034) ng/mL Total Protein 7.0 (6.3-8.2) g/dL Albumin 4.1 (3.5-5.0) g/dL Urine Color Yellow Urine Appearance Clear (Clear) Urine pH 6.0 (5.0-8.0) Ur Specific [place] 1.006 (1.001-1.035) Urine Protein Negative (Negative) Urine Glucose (UA) Negative (Negative) Urine Ketones Negative (Negative) Urine Blood Negative (Negative) Urine Nitrite Negative (Negative) Urine Bilirubin Negative (Negative) Urine Urobilinogen <2.0 (<2.0) mg/dL Ur Leukocyte Esterase Trace H (Negative) Urine RBC <1 (0-5) /hpf Urine WBC 1 (0-5) /hpf Ur Squamous Epith Cells <1 (0-4) /hpf Urine Mucus Rare H (None) /hpf 04/07/17 15:39 EKG shows normal sinus rhythm. Normal EKG. Ventricular rate of 64 bpm. OK interval 142 ms. QRS duration 86 no seconds. QT QTc is 400/[address] elevation or T-wave inversion. No evidence of atrial or ventricular arrhythmias. - Radiology Data Radiology results: report reviewed Chest x-rays negative for any acute process. Disposition Clinical Impression: Multiple sclerosis exacerbation, Tobacco use Disposition: ADMITTED IP TO THIS HOSP Condition: Stable Referrals: Carmen Ayala MD [Primary Care Provider] - 1-2 days Time of Disposition: 16:21
[2017-04-07 15:12] LABS: Partial Thromboplastin Time 23.8 sec (22.0-30.0); Prothrombin Time 10.5 sec (9.0-12.0)
[2017-04-07 15:16] LABS: ALT 16 U/L (21-72); AST 35 U/L (17-59); Alkaline Phosphatase 63 U/L (38-126); Anion Gap 7 mmol/L; Blood Urea Nitrogen 15 mg/dL (9-20); Calcium 9.4 mg/dL (8.4-10.2); Carbon Dioxide 27 mmol/L (22-30); Chloride 107 mmol/L (98-107); Glucose 55 mg/dL (74-99); Magnesium 2.2 mg/dL (1.6-2.3); Non-African American GFR(MDRD) >60 (>60 ml/min/1.73 sqM); Potassium 3.8 mmol/L (3.5-5.1); Sodium 141 mmol/L (137-145); Total Bilirubin 0.9 mg/dL (0.2-1.3)
[2017-04-07 15:24] LABS: Creatine Kinase 44 U/L (55-170)
[2017-04-07 15:36] LABS: Creatine Kinase MB 0.3 ng/mL (0.0-2.4); Troponin I <0.012 ng/mL (0.000-0.034)
--- NOTE | 2017-04-07 15:53 | XR ---
EXAMINATION TYPE: XR chest 2V DATE OF EXAM: 04/07/2017 CLINICAL HISTORY: Shortness of breath TECHNIQUE: Frontal and lateral views of the chest are obtained. COMPARISON: 12/02/2016 FINDINGS: There is no focal air space opacity, pleural effusion, or pneumothorax seen. The cardiac silhouette size is within normal limits. The osseous structures are intact. IMPRESSION: No acute cardiopulmonary process.
[2017-04-07 15:57] LABS: Appearance,Urine Clear (Clear); Bilirubin,Urine Negative (Negative); Glucose,Urine (UA) Negative (Negative); Ketones,Urine Negative (Negative); Leukocyte Esterase,Urine Trace (Negative); Mucus,Urine Rare /hpf; Nitrite,Urine Negative (Negative); Particle Count 2243; Protein,Urine Negative (Negative); RBC,Urine <1 /hpf (0-5); Specific Gravity,Urine 1.006 (1.001-1.035); Squamous Epithelial Cell,Urine <1 /hpf (0-4); UA Billing (MACRO vs. MICRO) MICRO; Urobilinogen,Urine <2.0 mg/dL (<2.0); WBC,Urine 1 /hpf (0-5)
[2017-04-07] MEDS ORDERED: IBUPROFEN 400 MG TAB PO PRN (16:21)
[2017-04-07] MEDS ORDERED: LORazepam 2 MG/ML INJ IV PRN (16:21)
[2017-04-07] MEDS ORDERED: KETOROLAC 30 MG/ML 1 ML VIAL IVP PRN (16:21)
[2017-04-07] MEDS ORDERED: HYDROmorphone 1 MG/ML 1 ML SYRINGE IVP PRN (16:21)
[2017-04-07] MEDS ORDERED: ONDANSETRON 4 MG/2 ML VIAL IVP PRN (16:21)
[2017-04-07] MEDS ORDERED: NALOXONE 0.4 MG/ML 1 ML VIAL IV PRN (16:21)
[2017-04-07] MEDS ORDERED: ACETAMINOPHEN TAB 325 MG TAB PO PRN (16:21)
[2017-04-07] MEDS ORDERED: methylPREDNISolone SOD SUCCI 250 MG in SODIUM CHLORIDE 0.9% 100 ML IVPB STA (16:24)
[2017-04-07] MEDS ORDERED: DEXTROSE 50%-WATER 50 ML SYRINGE IVP STA (17:12)
[2017-04-07 17:18] LABS: Glucose,Whole Blood 87 mg/dL (75-99)
[2017-04-07] MEDS: SODIUM CHLORIDE 0.9% 1,000 ML IV SCH (17:33)
[2017-04-07 21:12] LABS: Glucose,Whole Blood 188 mg/dL (75-99)
[2017-04-08] MEDS ORDERED: methylPREDNISolone SOD SUCCI 250 MG in SODIUM CHLORIDE 0.9% 100 ML IVPB SCH ×2
[2017-04-08] MEDS: GABAPENTIN 300 MG CAP PO SCH ×3 (00:18→21:41)
[2017-04-08] MEDS: methylPREDNISolone SOD SUCCI 250 MG in SODIUM CHLORIDE 0.9% 100 ML IVPB SCH ×5 (00:18→23:02)
[2017-04-08 02:10] LABS: Glucose,Whole Blood 173 mg/dL (75-99)
[2017-04-08] MEDS: SODIUM CHLORIDE 0.9% 1,000 ML IV SCH ×3 (05:27→17:14)
[2017-04-08] MEDS ORDERED: HYDROcodone/APAP 5-325MG 1 EACH TAB PO PRN (07:15)
[2017-04-08 07:34] LABS: Glucose,Whole Blood 145 mg/dL (75-99)
[2017-04-08] MEDS: NICOTINE 21MG/24HR PATCH TRANSDERM SCH (07:54)
[2017-04-08] MEDS: PANTOPRAZOLE 40 MG/10 ML VIAL IV SCH (07:54)
--- NOTE | 2017-04-08 08:29 | P.CONS ---
History of Present Illness - Chief Complaint Gait disturbance due to MS exacerbation - History of Present Illness I had the op to see patient for inpatient rehab consultation with regard to gait disturbance. He was admitted over the evening with MS exacerbation. Reports diagnosis of MS of 8 years with hospitalize exacerbations twice a year. The patient pending to but IV steroids have begun and effect patient already feels benefit. PT prescribed and I have added OT. Previous functional history as elicited from patient: 52-year-old left-handed white male who is lives in one form with daughter. Disability due to MS. Receives Meals on Wheels. Daughter does the cooking, laundry and assist patient with sitdown shower, dressing and wheelchair mobility. Regular doctors Dr. Ayala. Dr. Navarro is his regular neurologist. Family history of diabetes in both parents and cancer in father. Review of Systems Review of systems: ENT: Denies sneezes or discharge. Eyes: Denies discharge or photophobia. Cardiac: Denies chest pain or palpitation. Pulmonary: Denies cough or shortness of breath. Gastrointestinal: Denies nausea, emesis, constipation, diarrhea. Genitourinary: Denies discharge or frequency. Musculoskeletal: Denies muscle or bone aches. Neurologic: Generalized weakness as well as twitchiness of legs more so left. Endocrine: Denies shakes or sweats. Oncology: Denies cancers. Dermatologic: Denies rash, itching, pruritus. ALLERGY/immunology: Denies sneezes, rashes. Past Medical History Past Medical History: GERD/Reflux, Musculoskeletal Disorder, Prostate Disorder, Sleep Apnea/CPAP/BIPAP Additional Past Medical History / Comment(s): josé miguel Barlow- 15 years ago,won't use machine,norm for pt-he is able able to walk 5 steps with walker but last few days to weak to even lift legs, unable to walk or stand. Pt states has memory problems related to Multiple Sclerosis. History of Any Multi-Drug Resistant Organisms: None Reported Past Surgical History: No Surgical Hx Reported Additional Past Surgical History / Comment(s): laser eye sx oliva eyes( glaucoma) [place] teeth extraction. 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 Smoking Status: Current every day smoker Past Alcohol Use History: None Reported Additional Past Alcohol Use History / Comment(s): smoking cessation booklet given to pt Past Drug Use History: Marijuana Additional Drug Use History / Comment(s): medical marijuana - Past Family History Father Family Medical History: Cancer Additional Family Medical History / Comment(s): liver cancer Mother Family Medical History: Diabetes Mellitus, Deep Vein Thrombosis (DVT) Sister(s) Family Medical History: Cancer Medications and Allergies Home Medications Medication Instructions Recorded Confirmed Type Aspirin 81 mg PO DAILY 09/29/13 04/07/17 History Gabapentin [Neurontin] 600 mg PO QID 09/29/13 04/07/17 History Ergocalciferol [Vitamin D2 1 tab PO QMONTH 04/25/14 04/07/17 History (DRISDOL)] Docusate [Colace] 200 mg PO DAILY PRN 04/05/15 04/07/17 History HYDROcodone/APAP 5-325MG [[place] 1 tab PO BID PRN #60 tab 04/11/15 04/07/17 Rx 5-325] Ibuprofen [Motrin] 800 mg PO BID PRN #0 04/11/15 04/07/17 Rx Oxybutynin Chloride [Ditropan] 5 mg PO BID 06/18/16 04/07/17 History Clotrimazole [Lotrimin AF] 1 applic TOPICAL TID PRN 12/02/16 04/07/17 History Cyanocobalamin [Vitamin B-12] 500 mcg PO DAILY 12/02/16 04/07/17 History Doxazosin Mesylate [Cardura] 2 mg PO HS 12/02/16 04/07/17 History Omeprazole 20 mg PO BID 12/02/16 04/07/17 History DULoxetine HCL [Cymbalta] 30 mg PO DAILY 04/07/17 04/07/17 History Allergies Allergy/AdvReac Type Severity Reaction Status Date / Time bee venom protein (honey bee) Allergy Anaphylaxis Verified 04/07/17 15:05 Penicillins Allergy Rash/Hives Verified 04/07/17 15:05 Physical Exam Vitals: Vital Signs Temp Pulse Pulse Pulse Resp BP BP 04/08/17 07:00 98.4 F 78 20 128/73 04/07/17 23:00 98.8 F 74 18 124/71 04/07/17 18:34 96.0 F L 74 18 124/67 04/07/17 17:00 97.9 F 61 18 127/72 04/07/17 16:50 75 16 137/72 04/07/17 16:17 70 18 133/74 04/07/17 15:19 65 04/07/17 15:08 81 04/07/17 14:48 70 16 04/07/17 14:28 98.2 F 69 18 125/68 Pulse Ox 04/08/17 07:00 96 04/07/17 23:00 96 04/07/17 18:34 100 04/07/17 17:00 98 04/07/17 16:50 94 L 04/07/17 16:17 99 04/07/17 15:19 04/07/17 15:08 04/07/17 14:48 99 04/07/17 14:28 98 Intake and Output 04/07/17 04/08/17 04/08/17 22:59 06:59 14:59 Intake Total 500 500 Output Total 825 500 Balance -325 0 Intake: Oral 500 500 Output: Urine 825 500 Straight 825 500 Other: Voiding Method Self-Catheterization Self-Catheterization Skin: Good color, texture, turgor. General: Overweight to obese and comfortable appearance. Head: Normocephalic, atraumatic. Eyes: Symmetric. Pupils equal round. Ears: Symmetric. Hearing within normal limits. Mouth: Clear. Neck: Supple. Carotid without bruit. Cardiac: Regular rate and rhythm. Lungs: Clear anteriorly and posteriorly. Abdomen: Soft active nontender. Extremities: Increased tone in legs. Neurological: Mental status: Alert, cooperative, pleasant. Cranial nerves: Symmetric facial tone and trapezius. Motor: Can actively elevate arms off of bed but not legs, they become twitchy only. Sensation: Intact throughout. DTRs: Symmetric and equal throughout. Mobility: Sits with maximal plus assistance. Results CBC & Chem 7: 04/07/17 14:45 04/07/17 14:45 Labs: Abnormal Lab Results - Last 24 Hours (Table) 04/07/17 04/07/17 04/07/17 Range/Units 14:45 14:45 14:45 MCV 101.3 H (80.0-100.0) fL Glucose 55 L (74-99) mg/dL POC Glucose (mg/dL) (75-99) mg/dL ALT 16 L (21-72) U/L Total Creatine Kinase 44 L (55-170) U/L Ur Leukocyte Esterase (Negative) Urine Mucus (None) /hpf 04/07/17 04/07/17 04/08/17 Range/Units 15:41 20:49 02:05 MCV (80.0-100.0) fL Glucose (74-99) mg/dL POC Glucose (mg/dL) 188 H 173 H (75-99) mg/dL ALT (21-72) U/L Total Creatine Kinase (55-170) U/L Ur Leukocyte Esterase Trace H (Negative) Urine Mucus Rare H (None) /hpf 04/08/17 Range/Units 07:26 MCV (80.0-100.0) fL Glucose (74-99) mg/dL POC Glucose (mg/dL) 145 H (75-99) mg/dL ALT (21-72) U/L Total Creatine Kinase (55-170) U/L Ur Leukocyte Esterase (Negative) Urine Mucus (None) /hpf Assessment and Plan Plan: Session: 1. Gait disturbance. 2. MS exacerbation. 3. Contusion and pain left knee. 4. Reflux. 5. Sleep apnea. Comments and plan: PT and OT prescribed. Follow therapies with yourself. Hopefully Dr. Ceballos IV steroids will cause dramatic improvement to return to baseline level.
[2017-04-08 12:16] LABS: Glucose,Whole Blood 164 mg/dL (75-99)
[2017-04-08] MEDS ORDERED: DOCUSATE 100 MG CAP PO PRN (12:58)
[2017-04-08] MEDS ORDERED: NON-FORMULARY DRUG (Gabapentin [Neurontin] 600 MG) PO SCH (13:00)
[2017-04-08] MEDS ORDERED: ONDANSETRON 4 MG/2 ML VIAL IVP PRN (13:02)
--- NOTE | 2017-04-08 13:45 | P.HPIM ---
History of Present Illness H&P Date: 04/08/17 Chief Complaint: Generalized weakness This is a 52-year-old gentleman with past medical history noted below significant for underlying multiple sclerosis who usually follows up with a neurologist out of town. Patient presented to the hospital with worsening weakness and him unable to do his activities of daily living. Patient said that his problems started 2 days ago and is being getting progressively worse. Patient denies fevers or chills. No flulike symptoms. No chest pain or shortness of breath. Patient said that he was unable to walk around at home and was very weak and decided to come to the emergency room for further evaluation. Patient was evaluated and admitted to the hospital with multiple sclerosis exacerbation. He was seen by neurology last night. He was started on high-dose IV steroids with Solu-Medrol 250 mg every 6 hours. Review of Systems Review of system: 14 points review of systems were obtained and were negative except to what were mentioned in the HPI. Past Medical History Past Medical History: GERD/Reflux, Musculoskeletal Disorder, Prostate Disorder, Sleep Apnea/CPAP/BIPAP Additional Past Medical History / Comment(s): josé miguel Barlow- 15 years ago,won't use machine,norm for pt-he is able able to walk 5 steps with walker but last few days to weak to even lift legs, unable to walk or stand. Pt states has memory problems related to Multiple Sclerosis. History of Any Multi-Drug Resistant Organisms: None Reported Past Surgical History: No Surgical Hx Reported Additional Past Surgical History / Comment(s): laser eye sx oliva eyes( glaucoma) [place] teeth extraction. 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[employer] Smoking Status: Current every day smoker Past Alcohol Use History: None Reported Additional Past Alcohol Use History / Comment(s): smoking cessation booklet given to pt Past Drug Use History: Marijuana Additional Drug Use History / Comment(s): medical marijuana - Past Family History Father Family Medical History: Cancer Additional Family Medical History / Comment(s): liver cancer Mother Family Medical History: Diabetes Mellitus, Deep Vein Thrombosis (DVT) Sister(s) Family Medical History: Cancer Medications and Allergies Home Medications Medication Instructions Recorded Confirmed Type Aspirin 81 mg PO DAILY 05/07/14 11/13/17 History Gabapentin [Neurontin] 600 mg PO QID 09/29/13 04/07/17 History Ergocalciferol [Vitamin D2 1 tab PO QMONTH 04/25/14 04/07/17 History (DRISDOL)] Docusate [Colace] 200 mg PO DAILY PRN 04/05/15 04/07/17 History HYDROcodone/APAP 5-325MG [[place] 1 tab PO BID PRN #60 tab 04/11/15 04/07/17 Rx 5-325] Ibuprofen [Motrin] 800 mg PO BID PRN #0 04/11/15 04/07/17 Rx Oxybutynin Chloride [Ditropan] 5 mg PO BID 06/18/16 04/07/17 History Clotrimazole [Lotrimin AF] 1 applic TOPICAL TID PRN 12/02/16 04/07/17 History Cyanocobalamin [Vitamin B-12] 500 mcg PO DAILY 12/02/16 04/07/17 History Doxazosin Mesylate [Cardura] 2 mg PO HS 12/02/16 04/07/17 History Omeprazole 20 mg PO BID 12/02/16 04/07/17 History DULoxetine HCL [Cymbalta] 30 mg PO DAILY 04/07/17 04/07/17 History Allergies Allergy/AdvReac Type Severity Reaction Status Date / Time bee venom protein (honey bee) Allergy Anaphylaxis Verified 04/07/17 15:05 Penicillins Allergy Rash/Hives Verified 04/07/17 15:05 Physical Exam Vitals: Vital Signs Temp Pulse Pulse Pulse Resp BP BP 04/08/17 07:00 98.4 F 78 20 128/73 04/07/17 23:00 98.8 F 74 18 124/71 04/07/17 18:34 96.0 F L 74 18 124/67 04/07/17 17:00 97.9 F 61 18 127/72 04/07/17 16:50 75 16 137/72 04/07/17 16:17 70 18 133/74 04/07/17 15:19 65 04/07/17 15:08 81 04/07/17 14:48 70 16 04/07/17 14:28 98.2 F 69 18 125/68 Pulse Ox 04/08/17 07:00 96 04/07/17 23:00 96 04/07/17 18:34 100 04/07/17 17:00 98 04/07/17 16:50 94 L 04/07/17 16:17 99 04/07/17 15:19 04/07/17 15:08 04/07/17 14:48 99 04/07/17 14:28 98 Intake and Output 04/07/17 04/08/17 04/08/17 22:59 06:59 14:59 Intake Total 500 500 240 Output Total 825 500 450 Balance -325 0 -210 Intake: Oral 500 500 240 Output: Urine 825 500 450 Straight 825 500 450 Other: Voiding Method Self-Catheterization Self-Catheterization # Bowel Movements 0 General: The patient is awake and alert, in no distress Eye: there is normal conjunctiva bilaterally. Neck: The neck is supple, there is no JVD. Cardiovascular: Normal S1-S2, no S3-S4, no murmurs. Respiratory: Lungs clear to auscultation bilaterally Gastrointestinal: Abdomen is soft, nontender Musculoskeletal: There is no pedal edema. Neurological:. Speech is normal. Skin: Skin is warm and dry Results CBC & Chem 7: 04/07/17 14:45 04/07/17 14:45 Labs: Abnormal Lab Results - Last 24 Hours (Table) 04/07/17 04/07/17 04/07/17 Range/Units 14:45 14:45 14:45 MCV 101.3 H (80.0-100.0) fL Glucose 55 L (74-99) mg/dL POC Glucose (mg/dL) (75-99) mg/dL ALT 16 L (21-72) U/L Total Creatine Kinase 44 L (55-170) U/L Ur Leukocyte Esterase (Negative) Urine Mucus (None) /hpf 04/07/17 04/07/17 04/08/17 Range/Units 15:41 20:49 02:05 MCV (80.0-100.0) fL Glucose (74-99) mg/dL POC Glucose (mg/dL) 188 H 173 H (75-99) mg/dL ALT (21-72) U/L Total Creatine Kinase (55-170) U/L Ur Leukocyte Esterase Trace H (Negative) Urine Mucus Rare H (None) /hpf 04/08/17 04/08/17 Range/Units 07:26 12:11 MCV (80.0-100.0) fL Glucose (74-99) mg/dL POC Glucose (mg/dL) 145 H 164 H (75-99) mg/dL ALT (21-72) U/L Total Creatine Kinase (55-170) U/L Ur Leukocyte Esterase (Negative) Urine Mucus (None) /hpf Thrombosis Risk Factor Assmnt - Choose All That Apply Each Factor Represents 1 point: Age 41-60 years Thrombosis Risk Factor Assessment Total Risk Factor Score: 1 Thrombosis Risk Factor Assessment Level: Low Risk Assessment and Plan Assessment: 1. Acute multiple sclerosis exacerbation, seen and evaluated by neurology. Started on IV Solu-Medrol 250 mg every 6 hours. Most likely require 5 days of treatment, appreciate neurology recommendations. 2. Physical debility, PT/OT consulted. 3. Chronic benign prostatic hyperplasia 4. GERD 5. Tobacco abuse, counseled to quit. Discussed different strategies. Nicotine patch ordered. Today, I reviewed his medication list the lab work results. Started on Lantus 8 units at bedtime to prevent steroid-induced hyperglycemia. We will continue current regimen otherwise. Repeat lab work in the morning. Appreciate career development consultant's recommendations.
[2017-04-08] MEDS: ASPIRIN 81 MG PO SCH (14:09)
[2017-04-08] MEDS: HYDROcodone/APAP 5-325MG 1 EACH TAB PO PRN ×2 (14:21→21:48)
[2017-04-08] MEDS ORDERED: LORazepam 0.5 MG TAB PO PRN (14:26)
--- NOTE | 2017-04-08 14:46 | P.CNNES ---
History of Present Illness Consult date: 04/07/17 Reason for Consult: Patient admitted with possible MS exacerbation. History of Present Illness: This patient is a 52-year-old right-handed white male who has a history of underlying diagnosis of multiple sclerosis. Patient states he was diagnosed about 8 years ago and has been following with [facility]ist [facility]. Patient is seen by Dr. Gonzalezfor treatment of his MS and is evaluated every 6 months. He does have to drive to [facility] for this assessment. 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 He states he is usually only been treated for his MS condition with IV steroids. He has been unable to obtain interferon therapies due to his insurance. Most recently he was being considered for treatment with the newest infusion for his MS which she was to use Ocrevus. Unfortunately his insurance would not cover this medication even with the prior authorization. Patient has been unable to use any other interferon therapies for his MS thus far. This is still not clear to us as to why he has not been tried on other treatments for his MS over the last 8 years. Now that he is not eligible for the new treatment he is stuck in terms of other options at this point. He will be following up with his neurologist in the next month in terms of alternative treatments. The patient apparently developed severe weakness in his legs causing him inability to stand or ambulate at home. He does use a wheelchair mostly to get about even prior to this recent bout of severe MS exacerbation. He apparently did sustain a fall recently due to weakness in his legs as well. The patient had a similar MS exacerbation early in October of this year. He did require 5 days of IV Solu-Medrol therapy. His major symptom of weakness currently is bilateral lower extremity weakness. We have recommended that she should be placed on IV Solu-Medrol 250 mg IV piggyback 4 times a day for 3-5 days of treatment. We have recommended that he should be evaluated by Dr. Pinedo for possible inpatient rehab placement. Apparently he did have an MRI of the brain performed about 6 months ago. He was told that there wasprogression of his MS plaque lesions on the MRI showing progression of his MS disease. As noted he is stuck at this point as he is not on any specific MS therapies. Given the acute exacerbation he will require 3-5 days of IV Solu- Medrol treatment. We will consult physical therapy and occupational therapy as well. He should be evaluated for inpatient rehab placement. We have discussed all of these findings in detail today with the patient. Neurology has now been consulted for further evaluation and recommendations. Review of Systems Constitutional: Denies chills, Denies fever Eyes: denies blurred vision, denies pain Ears, nose, mouth and throat: Denies headache, Denies sore throat Cardiovascular: Denies chest pain, Denies shortness of breath Respiratory: Denies cough Gastrointestinal: Denies abdominal pain, Denies diarrhea, Denies nausea, Denies vomiting Genitourinary: Reports urinary frequency, Reports urinary retention Musculoskeletal: Reports atrophy, Reports muscle weakness, Denies myalgias Integumentary: Denies pruritus, Denies rash Neurological: Reports gait dysfunction, Reports paresthesias, Reports spasticity , Denies numbness, Denies weakness Psychiatric: Denies anxiety, Denies depression Endocrine: Denies fatigue, Denies weight change Past Medical History Past Medical History: GERD/Reflux, Musculoskeletal Disorder, Prostate Disorder, Sleep Apnea/CPAP/BIPAP Additional Past Medical History / Comment(s): IleneSabrinaThomasjosé miguel- 15 years ago,won't use machine,norm for pt-he is able able to walk 5 steps with walker but last few days to weak to even lift legs, unable to walk or stand. Pt states has memory problems related to Multiple Sclerosis. History of Any Multi-Drug Resistant Organisms: None Reported Past Surgical History: No Surgical Hx Reported Additional Past Surgical History / Comment(s): laser eye sx oliva eyes( glaucoma) [place] teeth extraction. 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 Smoking Status: Current every day smoker Past Alcohol Use History: None Reported Additional Past Alcohol Use History / Comment(s): smoking cessation booklet given to pt Past Drug Use History: Marijuana Additional Drug Use History / Comment(s): medical marijuana - Past Family History Father Family Medical History: Cancer Additional Family Medical History / Comment(s): liver cancer Mother Family Medical History: Diabetes Mellitus, Deep Vein Thrombosis (DVT) Sister(s) Family Medical History: Cancer Medications and Allergies Home Medications Medication Instructions Recorded Confirmed Type Aspirin 81 mg PO DAILY 09/29/13 04/07/17 History Gabapentin [Neurontin] 600 mg PO QID 09/29/13 04/07/17 History Ergocalciferol [Vitamin D2 1 tab PO QMONTH 04/25/14 04/07/17 History (DRISDOL)] Docusate [Colace] 200 mg PO DAILY PRN 04/05/15 04/07/17 History HYDROcodone/APAP 5-325MG [[place] 1 tab PO BID PRN #60 tab 04/11/15 04/07/17 Rx 5-325] Ibuprofen [Motrin] 800 mg PO BID PRN #0 04/11/15 04/07/17 Rx Oxybutynin Chloride [Ditropan] 5 mg PO BID 06/18/16 04/07/17 History Clotrimazole [Lotrimin AF] 1 applic TOPICAL TID PRN 12/02/16 04/07/17 History Cyanocobalamin [Vitamin B-12] 500 mcg PO DAILY 12/02/16 04/07/17 History Doxazosin Mesylate [Cardura] 2 mg PO HS 12/02/16 04/07/17 History Omeprazole 20 mg PO BID 12/02/16 04/07/17 History DULoxetine HCL [Cymbalta] 30 mg PO DAILY 04/07/17 04/07/17 History Allergies Allergy/AdvReac Type Severity Reaction Status Date / Time bee venom protein (honey bee) Allergy Anaphylaxis Verified 04/07/17 15:05 Penicillins Allergy Rash/Hives Verified 04/07/17 15:05 Physical Examination - Vital Signs Vital Signs: Vital Signs Temp Pulse Pulse Resp BP BP Pulse Ox 04/07/17 18:34 96.0 F L 74 18 124/67 100 04/07/17 17:00 97.9 F 61 18 127/72 98 04/07/17 16:50 75 16 137/72 94 L 04/07/17 16:17 70 18 133/74 99 04/07/17 15:19 65 04/07/17 15:08 81 04/07/17 14:48 70 16 99 04/07/17 14:28 98.2 F 69 18 125/68 98 Intake and Output 04/07/17 04/07/17 04/07/17 06:59 14:59 22:59 Output Total 500 Balance -500 Output: Urine 500 Straight 500 Other: Voiding Method Self-Catheterization Weight 90.718 kg Patient Weight 04/08/17 06:59 Weight 90.718 kg - Constitutional General appearance: average body habitus, cooperative - EENT EENT: PERRL, mucous membranes moist - Respiratory Respiratory: lungs clear, normal breath sounds - Cardiovascular Cardiovascular: regular rate, normal S1, normal S2 Extremities: no peripheral edema bilaterally - Gastrointestinal Gastrointestinal: normoactive bowel sounds - Integumentary Integumentary: normal - Neurologic Cranial nerve examination: PERRL, EOMI Speech examination: intact Sensorimotor examination: intact Detailed motor examination: grossly full strength in all extremities Motor examination - right side: 2/5: hip flexors, knee extensors, dorsiflexion, toe extension (EHL), plantarflexion, 3/5: biceps, triceps, wrist flexion, wrist extension, viscosity tester Motor examination - left side: 2/5: hip flexors, knee extensors, dorsiflexion, toe extension (EHL), plantarflexion, 3/5: biceps, triceps, wrist flexion, wrist extension, viscosity tester Detailed sensory examination: intact Reflex and gait examination: intact Reflexes: 1+: ankle, bicep, knee, tricep - Musculoskeletal Musculoskeletal: no pain - Psychiatric Psychiatric: mood/affect appropriate, cooperative Results - Laboratory Findings CBC and BMP: 04/07/17 14:45 04/07/17 14:45 Abnormal Lab Findings: Abnormal Labs 04/07/17 04/07/17 04/07/17 14:45 14:45 14:45 MCV 101.3 H Glucose 55 L ALT 16 L Total Creatine Kinase 44 L Ur Leukocyte Esterase Urine Mucus 04/07/17 15:41 MCV Glucose ALT Total Creatine Kinase Ur Leukocyte Esterase Trace H Urine Mucus Rare H Assessment and Plan (1) Multiple sclerosis exacerbation Current Visit: Yes Status: Acute SNOMED Code(s): 788320380 (2) Neuropathic pain Current Visit: Yes Status: Acute SNOMED Code(s): 336707178 (3) Urinary retention Current Visit: No Status: Acute SNOMED Code(s): 831935720 (4) Weakness generalized Current Visit: No Status: Chronic SNOMED Code(s): 22861920 Plan: This patient is a 52-year-old male who was admitted to the hospital today for acute MS exacerbation. Patient developed severe weakness in both of his lower extremities over the last week. He has been unable to stand without assistance. He has a long-standing history of underlying primary progressive form of multiple sclerosis. He is being followed at the [facility] in [facility] by his neurologist Dr. Gonzalez. He follows every 6 months with his specialist. He has not been on any specific interferon therapy for his MS exact reason why is still not clear. He was being considered for treatment of his primary progressive form of MS with the newer medication namely Ocrevus. Unfortunately his insurance, they would not pay for this medication. Patient has not been treated with other interferon therapies in the past. He does follow with his neurologist every 6 months. He is now been admitted for acute MS exacerbation of the lower extremities. We have suggested he should be maintained on IV Solu-Medrol 250 mg IV piggyback every 6 hours 5 days. He should continue on Neurontin for treatment of his neuropathic pain in the legs. We will consult Dr. Pinedo for evaluation of possible inpatient rehab placement for this patient with advanced MS. We will also consult physical therapy for their initial assessment and recommendations. We have strongly recommend the patient should follow-up with Dr. Gonzalez in terms of further options for treatment of his very advanced MS condition. We will continue to monitor his condition closely during this admission for his acute MS exacerbation. His overall prognosis at this time remains guarded. We will continue close neurological follow-up of this patient during this admission. Time with Patient: Greater than 30
[2017-04-08] MEDS: CYCLOBENZAPRINE 10 MG TAB PO SCH ×2 (15:05→21:42)
[2017-04-08 17:17] LABS: Glucose,Whole Blood 180 mg/dL (75-99)
[2017-04-08 20:48] LABS: Glucose,Whole Blood 218 mg/dL (75-99)
--- NOTE | 2017-04-08 20:58 | P.PN ---
Subjective Progress Note Date: 04/08/17 This patient is a 52-year-old right-handed white male who was admitted hospital yesterday with acute MS exacerbation. Patient has a long-standing history of primary progressive MS. He developed increased weakness in his lower extremities and this was his reason for admission. He was started on IV Solu- Medrol yesterday for acute MS exacerbation. We are recommending 3-5 days of treatment. We're waiting further evaluation from Dr. Pinedo in regards to his potential for inpatient rehab placement. He has significant lower extremity weakness secondary to his myelopathic form of MS. We will continue to work with PT/OT to maximize his neuromuscular potential.the patient was seen today by Dr. Pinedo. We are awaiting his further recommendations for possible inpatient rehab.the patient has completed 1 day of IV Solu-Medrol therapy. He has noted improvement in his muscle strength in both his legs as well as his arms. We are anticipating that he will require at least 5 days of IV steroid therapy. We will await further recommendations from Dr. Pinedo. We will continue to follow his progress closely. His overall prognosis at this time remains guarded. Objective - Vital Signs Vital signs: Vital Signs Temp 98.4 F 04/08/17 07:00 Pulse 78 04/08/17 07:00 Resp 20 04/08/17 07:00 BP 128/73 04/08/17 07:00 Pulse Ox 96 04/08/17 07:00 Intake & Output 04/07/17 04/08/17 04/08/17 18:59 06:59 18:59 Intake Total 1000 240 Output Total 500 825 450 Balance -500 175 -210 Weight 90.718 kg Intake: Oral 1000 240 Output: Urine 500 825 450 Straight 500 825 450 Other: Voiding Method Self-Catheterization Self-Catheterization Self-Catheterization # Bowel Movements 0 - Exam Physical examination: PHYSICAL EXAMINATION: Patient is resting comfortably in bed. VITAL SIGNS: Blood pressure is [123/72]. Heart rate is [73]. Respiration is [18] . Temperature is [97.8]. HEENT: Head is atraumatic, neck is supple, there were no carotid bruits. CHEST: Lungs are clear to auscultation and percussion. CARDIAC: S1, S2 normal rate and rhythm. There is no murmur. ABDOMEN: Soft and nontender. Bowel sounds are present. EXTREMITIES: There is no pedal edema. Peripheral pulses are present. Neurological examination: Patient's neurological examination is unchanged from yesterday. He has profound weakness in both lower extremities.patient feels some improvement in muscle strength in the lower extremities as well as in both upper extremities as compared to prior to his admission to hospital. - Labs CBC & Chem 7: 04/07/17 14:45 04/07/17 14:45 Labs: Abnormal Lab Results - Last 24 Hours (Table) 04/07/17 04/07/17 04/07/17 Range/Units 14:45 14:45 14:45 MCV 101.3 H (80.0-100.0) fL Glucose 55 L (74-99) mg/dL POC Glucose (mg/dL) (75-99) mg/dL ALT 16 L (21-72) U/L Total Creatine Kinase 44 L (55-170) U/L Ur Leukocyte Esterase (Negative) Urine Mucus (None) /hpf 04/07/17 04/07/17 04/08/17 Range/Units 15:41 20:49 02:05 MCV (80.0-100.0) fL Glucose (74-99) mg/dL POC Glucose (mg/dL) 188 H 173 H (75-99) mg/dL ALT (21-72) U/L Total Creatine Kinase (55-170) U/L Ur Leukocyte Esterase Trace H (Negative) Urine Mucus Rare H (None) /hpf 04/08/17 04/08/17 Range/Units 07:26 12:11 MCV (80.0-100.0) fL Glucose (74-99) mg/dL POC Glucose (mg/dL) 145 H 164 H (75-99) mg/dL ALT (21-72) U/L Total Creatine Kinase (55-170) U/L Ur Leukocyte Esterase (Negative) Urine Mucus (None) /hpf Assessment and Plan (1) Multiple sclerosis exacerbation Current Visit: Yes Status: Acute SNOMED Code(s): 794876517 (2) Neuropathic pain Current Visit: Yes Status: Acute SNOMED Code(s): 605107694 (3) Urinary retention Current Visit: No Status: Acute SNOMED Code(s): 329056063 (4) Weakness generalized Current Visit: No Status: Chronic SNOMED Code(s): 17655871 Plan: This patient is a 52-year-old male who was admitted to the hospital today for acute MS exacerbation. Patient developed severe weakness in both of his lower extremities over the last week. He has been unable to stand without assistance. He has a long-standing history of underlying primary progressive form of multiple sclerosis. He is being [facility] at [facility] by his neurologist Dr. Gonzalez. He follows every 6 months with his specialist. He has not been on any specific interferon therapy for his MS exact reason why is still not clear. He was being considered for treatment of his primary progressive form of MS with the newer medication namely Ocrevus. Unfortunately his insurance, they would not pay for this medication. Patient has not been treated with other interferon therapies in the past. He does follow with his neurologist every 6 months. He is now been admitted for acute MS exacerbation of the lower extremities. We have suggested he should be maintained on IV Solu-Medrol 250 mg IV piggyback every 6 hours 5 days. He should continue on Neurontin for treatment of his neuropathic pain in the legs. We will consult Dr. Pinedo for evaluation of possible inpatient rehab placement for this patient with advanced MS. Patient was seen today by Dr. Pinedo. He is being evaluated for possible inpatient rehab for ongoing subacute rehabilitation for his advanced MS. We will also consult physical therapy for their initial assessment and recommendations. We have strongly recommend the patient should follow-up with Dr. Gonzalez in terms of further options for treatment of his very advanced MS condition. We will continue to monitor his condition closely during this admission for his acute MS exacerbation. We anticipate the patient will require 5 days of steroid therapy. We will continue to monitor his progress and response very closely during this admission. His overall prognosis at this time remains guarded. We will continue close neurological follow-up of this patient during this admission.
[2017-04-08] MEDS: CALCIUM CARBONATE 500 MG CHEWABLE PO PRN (21:38)
[2017-04-08] MEDS: HEPARIN SODIUM,PORCINE 5,000 UNIT/ML 1 ML VIAL SQ SCH (21:41)
[2017-04-08] MEDS: DOXAZOSIN 2 MG TAB PO SCH (21:41)
[2017-04-08] MEDS: OXYBUTYNIN CHLORIDE 5 MG TAB PO SCH (21:42)
[2017-04-08] MEDS: INSULIN DETEMIR 100 UNIT/ML 10 ML VIAL SQ SCH (21:42)
[2017-04-09 04:06] LABS: Glucose,Whole Blood 159 mg/dL (75-99)
[2017-04-09] MEDS: methylPREDNISolone SOD SUCCI 250 MG in SODIUM CHLORIDE 0.9% 100 ML IVPB SCH ×4 (06:02→23:54)
[2017-04-09] MEDS: SODIUM CHLORIDE 0.9% 1,000 ML IV SCH ×2 (07:20→08:24)
[2017-04-09 07:43] LABS: Glucose,Whole Blood 141 mg/dL (75-99)
[2017-04-09] MEDS: NICOTINE 21MG/24HR PATCH TRANSDERM SCH (08:22)
[2017-04-09] MEDS: GABAPENTIN 300 MG CAP PO SCH ×2 (08:22→20:14)
[2017-04-09] MEDS: OXYBUTYNIN CHLORIDE 5 MG TAB PO SCH ×2 (08:23→20:14)
[2017-04-09] MEDS: CYCLOBENZAPRINE 10 MG TAB PO SCH ×3 (08:23→21:16)
[2017-04-09] MEDS: ASPIRIN 81 MG PO SCH (08:23)
[2017-04-09] MEDS: DULoxetine HCL 30 MG CAPSULE.DR PO SCH (08:23)
[2017-04-09] MEDS: HEPARIN SODIUM,PORCINE 5,000 UNIT/ML 1 ML VIAL SQ SCH ×2 (08:23→20:15)
[2017-04-09] MEDS: PANTOPRAZOLE 40 MG/10 ML VIAL IV SCH (08:24)
[2017-04-09] MEDS: HYDROcodone/APAP 5-325MG 1 EACH TAB PO PRN ×2 (08:32→21:16)
--- NOTE | 2017-04-09 12:12 | P.PN ---
Subjective Patient reports feeling a lot better today. Objective - Vital Signs Vital signs: Vital Signs Temp 96.9 F L 04/09/17 07:00 Pulse 54 L 04/09/17 07:00 Resp 16 04/09/17 07:00 BP 125/60 04/09/17 07:00 Pulse Ox 96 04/09/17 07:00 Intake & Output 04/08/17 04/09/17 04/09/17 18:59 06:59 18:59 Intake Total 240 1050 Output Total 875 1150 Balance -635 1050 -1150 Intake: Oral 240 1050 Output: Urine 875 1150 Straight 450 575 Other: Voiding Method Self-Catheterization Self-Catheterization # Voids 1 # Bowel Movements 0 - Exam General: The patient is awake and alert, in no distress Eye: there is normal conjunctiva bilaterally. Neck: The neck is supple, there is no JVD. Cardiovascular: Normal S1-S2, no S3-S4, no murmurs. Respiratory: Lungs clear to auscultation bilaterally Gastrointestinal: Abdomen is soft, nontender Musculoskeletal: There is no pedal edema. Neurological:. Speech is normal. Skin: Skin is warm and dry - Labs CBC & Chem 7: 04/07/17 14:45 04/07/17 14:45 Labs: Abnormal Lab Results - Last 24 Hours (Table) 04/08/17 04/08/17 04/08/17 Range/Units 12:11 17:10 20:34 POC Glucose (mg/dL) 164 H 180 H 218 H (75-99) mg/dL 04/09/17 04/09/17 Range/Units 03:40 07:17 POC Glucose (mg/dL) 159 H 141 H (75-99) mg/dL Assessment and Plan Assessment: 1. Acute multiple sclerosis exacerbation, seen and evaluated by neurology. Started on IV Solu-Medrol 250 mg every 6 hours. Plan to finish 5 days course. 2. Physical debility, PT/OT consulted. 3. Chronic benign prostatic hyperplasia 4. GERD 5. Tobacco abuse, counseled to quit. Discussed different strategies. Nicotine patch ordered. Today, I reviewed his medication list the lab work results. Started on Lantus 8 units at bedtime to prevent steroid-induced hyperglycemia. We will continue current regimen otherwise. Repeat lab work in the morning. Appreciate computing consultant's recommendations.
[2017-04-09 12:15] LABS: Glucose,Whole Blood 147 mg/dL (75-99)
[2017-04-09 16:50] LABS: Glucose,Whole Blood 192 mg/dL (75-99)
[2017-04-09] MEDS: INSULIN ASPART 100 UNIT/ML 1 ML 10 ML VIAL SQ SCH ×2 (17:28→21:17)
[2017-04-09] MEDS: DOXAZOSIN 2 MG TAB PO SCH (20:13)
[2017-04-09 20:43] LABS: Glucose,Whole Blood 239 mg/dL (75-99)
[2017-04-09] MEDS: INSULIN DETEMIR 100 UNIT/ML 10 ML VIAL SQ SCH (21:17)
--- NOTE | 2017-04-09 22:49 | P.PN ---
Subjective Progress Note Date: 04/09/17 This patient is a 52-year-old right-handed white male who was admitted hospital yesterday with acute MS exacerbation. Patient has a long-standing history of primary progressive MS. He developed increased weakness in his lower extremities and this was his reason for admission. He was started on IV Solu- Medrol yesterday for acute MS exacerbation. We are recommending 3-5 days of treatment. We're waiting further evaluation from Dr. Pinedo in regards to his potential for inpatient rehab placement. He has significant lower extremity weakness secondary to his myelopathic form of MS. We will continue to work with PT/OT to maximize his neuromuscular potential.the patient was seen today by Dr. Pinedo. We are awaiting his further recommendations for possible inpatient rehab.the patient has completed 1 day of IV Solu-Medrol therapy. He has noted improvement in his muscle strength in both his legs as well as his arms. We are anticipating that he will require at least 5 days of IV steroid therapy. Patient states that he has been accepted for inpatient rehab tomorrow. We have recommended that he should complete a total of 5 days of IV Solu-Medrol which means he will need to doses at the rehab center. The patient is noticing some improvement with his lower extremity strength. As mentioned he is being considered for transfer to inpatient rehab tomorrow. He should be maintained on 2 more doses of IV Solu-Medrol for 2 days and then placed on a slow prednisone taper. Patient is to follow-up with his regular neurologist in terms of obtaining prior authorization for use of a Ocrevus for treatment of his primary progressive MS. He will discuss this further with his neurologist. We will await further recommendations from Dr. Pinedo. We will continue to follow his progress closely. His overall prognosis at this time remains guarded. Objective - Vital Signs Vital signs: Vital Signs Temp 97.5 F L 04/09/17 14:57 Pulse 60 04/09/17 14:57 Resp 20 04/09/17 14:57 BP 129/59 04/09/17 14:57 Pulse Ox 95 04/09/17 14:57 Intake & Output 04/09/17 04/09/17 04/10/17 06:59 18:59 06:59 Intake Total 1050 Output Total 1979 Balance 1050 -1979 Intake: Oral 1050 Output: Urine 1979 Straight 990 Other: Voiding Method Self-Catheterization Self-Catheterization # Voids 1 - Exam Physical examination: PHYSICAL EXAMINATION: Patient is resting comfortably in bed. VITAL SIGNS: Blood pressure is [129/59]. Heart rate is [60]. Respiration is [20] . Temperature is [97.5]. HEENT: Head is atraumatic, neck is supple, there were no carotid bruits. CHEST: Lungs are clear to auscultation and percussion. CARDIAC: S1, S2 normal rate and rhythm. There is no murmur. ABDOMEN: Soft and nontender. Bowel sounds are present. EXTREMITIES: There is no pedal edema. Peripheral pulses are present. Neurological examination: Patient's neurological examination is unchanged from yesterday. He has profound weakness in both lower extremities.patient feels some improvement in muscle strength in the lower extremities as well as in both upper extremities as compared to prior to his admission to hospital. - Labs CBC & Chem 7: 04/07/17 14:45 04/07/17 14:45 Labs: Abnormal Lab Results - Last 24 Hours (Table) 04/08/17 04/09/17 04/09/17 Range/Units 20:34 03:40 07:17 POC Glucose (mg/dL) 218 H 159 H 141 H (75-99) mg/dL 04/09/17 04/09/17 Range/Units 12:07 16:46 POC Glucose (mg/dL) 147 H 192 H (75-99) mg/dL Assessment and Plan (1) Multiple sclerosis exacerbation Current Visit: Yes Status: Acute SNOMED Code(s): 724548621 (2) Neuropathic pain Current Visit: Yes Status: Acute SNOMED Code(s): 126817120 (3) Urinary retention Current Visit: No Status: Acute SNOMED Code(s): 891052347 (4) Weakness generalized Current Visit: No Status: Chronic SNOMED Code(s): 10220949 Plan: This patient is a 52-year-old male who was admitted to the hospital today for acute MS exacerbation. Patient developed severe weakness in both of his lower extremities over the last week. He has been unable to stand without assistance. He has a long-standing history of underlying primary progressive form of multiple sclerosis. [facility] by his neurologist Dr. Gonzalez. He follows every 6 months with his specialist. He has not been on any specific interferon therapy for his MS exact reason why is still not clear. He was being considered for treatment of his primary progressive form of MS with the newer medication namely Ocrevus. Unfortunately his insurance, they would not pay for this medication. Patient has not been treated with other interferon therapies in the past. He does follow with his neurologist every 6 months. He is now been admitted for acute MS exacerbation of the lower extremities. We have suggested he should be maintained on IV Solu-Medrol 250 mg IV piggyback every 6 hours 5 days. He should continue on Neurontin for treatment of his neuropathic pain in the legs. We will consult Dr. Pinedo for evaluation of possible inpatient rehab placement for this patient with advanced MS. Patient was seen today by Dr. Pinedo. He is being evaluated for possible inpatient rehab for ongoing subacute rehabilitation for his advanced MS. according to the patient he has been accepted for inpatient rehab at [facility] tomorrow. He should complete a total of 5 days of IV Solu-Medrol even if he is transferred to the rehab unit. We've instructed the nursing staff on the floor today to make sure this order is carried out tomorrow. After 5 days he should be placed on oral prednisone taper over the next 6 weeks. Patient was advised to follow-up with his primary neurologist in regards to obtaining precertification for use of Ocrevus in the management of his primary progressive MS. His overall prognosis at this time remains guarded. We will continue close neurological follow-up of this patient.
[2017-04-09 23:21] VITALS: RESP 18
[2017-04-10] MEDS: methylPREDNISolone SOD SUCCI 250 MG in SODIUM CHLORIDE 0.9% 100 ML IVPB SCH ×2 (06:15→11:39)
[2017-04-10] MEDS ORDERED: PANTOPRAZOLE 40 MG TABLET PO SCH (07:30)
[2017-04-10 07:39] LABS: Glucose,Whole Blood 145 mg/dL (75-99)
[2017-04-10 07:48] VITALS: BP 142/79; PULSE 80; TEMP 97.8
[2017-04-10] MEDS: DULoxetine HCL 30 MG CAPSULE.DR PO SCH (08:42)
[2017-04-10] MEDS: NICOTINE 21MG/24HR PATCH TRANSDERM SCH (08:42)
[2017-04-10] MEDS: GABAPENTIN 300 MG CAP PO SCH (08:42)
[2017-04-10] MEDS: HEPARIN SODIUM,PORCINE 5,000 UNIT/ML 1 ML VIAL SQ SCH (08:43)
[2017-04-10] MEDS: CYCLOBENZAPRINE 10 MG TAB PO SCH (08:43)
[2017-04-10] MEDS: OXYBUTYNIN CHLORIDE 5 MG TAB PO SCH (08:43)
[2017-04-10] MEDS: ASPIRIN 81 MG PO SCH (08:43)
[2017-04-10] MEDS: INSULIN ASPART 100 UNIT/ML 1 ML 10 ML VIAL SQ SCH ×2 (08:43→11:40)
[2017-04-10] MEDS: HYDROcodone/APAP 5-325MG 1 EACH TAB PO PRN (08:46)
[2017-04-10 11:29] LABS: Glucose,Whole Blood 127 mg/dL (75-99)
--- NOTE | 2017-04-10 11:30 | P.DS ---
Providers Date of admission: 04/07/17 16:51 Expected date of discharge: 04/10/17 Attending physician: Danyelle Hampton Consults: 04/07/17 16:21 Consult Physician Stat Consulting Provider: Rebecca Deluca Consult Reason/Comments: MS exacerbation Do you want consulting provider notified?: Yes 04/08/17 08:00 Consult Physician Urgent Consulting Provider: Marshal Pinedo Consult Reason/Comments: MS exacerbation and bilateral leg weakness. Do you want consulting provider notified?: Yes Primary care physician: Carmen [facility] Course: This is a 52-year-old gentleman with past medical history significant for multiple sclerosis who usually follow-up with a neurologist out of town that presented to the hospital with worsening generalized pain and generalized weakness. Patient said that he was unable to perform his activities of daily living. He was evaluated in the emergency room and was admitted to the hospital with multiple sclerosis exacerbation. He was seen and evaluated by neurology and was started on high-dose steroids with IV Solu-Medrol 250 mg every 6 hours. Plan is to finish 5 days course of treatment. Last dose of IV Solu-Medrol should be Friday morning 04/12/2017. 1. Acute multiple sclerosis exacerbation, seen and evaluated by neurology. Started on IV Solu-Medrol 250 mg every 6 hours. Plan to finish 5 days course. 2. Physical debility, PT/OT consulted. Patient will be [facility] 3. Chronic benign prostatic hyperplasia 4. GERD 5. Tobacco abuse, counseled to quit during this admission. Discussed different strategies. Nicotine patch ordered. Patient Condition at Discharge: Fair Plan - Discharge Summary New Discharge Prescriptions: New Cyclobenzaprine [Flexeril] 10 mg PO TID PRN #30 tab PRN Reason: Muscle Spasm Gabapentin [Neurontin] 600 mg PO BID cap LORazepam [Ativan] 0.5 mg PO BID PRN tab PRN Reason: Anxiety Nicotine 21Mg/24Hr Patch [Habitrol] 1 patch TRANSDERM DAILY #0 patch Continue Aspirin 81 mg PO DAILY Ergocalciferol [Vitamin D2 (DRISDOL)] 1 tab PO QMONTH Docusate [Colace] 200 mg PO DAILY PRN PRN Reason: Constipation HYDROcodone/APAP 5-325MG [[place] 5-325] 1 tab PO BID PRN #60 tab PRN Reason: Pain Ibuprofen [Motrin] 800 mg PO BID PRN #0 PRN Reason: Pain Oxybutynin Chloride [Ditropan] 5 mg PO BID Omeprazole 20 mg PO BID Doxazosin Mesylate [Cardura] 2 mg PO HS Cyanocobalamin [Vitamin B-12] 500 mcg PO DAILY DULoxetine HCL [Cymbalta] 30 mg PO DAILY Discontinued Gabapentin [Neurontin] 600 mg PO QID Clotrimazole [Lotrimin AF] 1 applic TOPICAL TID PRN PRN Reason: Skin Irritation Discharge Medication List Aspirin 81 mg PO DAILY 09/29/13 [History] Ergocalciferol [Vitamin D2 (DRISDOL)] 1 tab PO QMONTH 04/25/14 [History] Docusate [Colace] 200 mg PO DAILY PRN 04/05/15 [History] HYDROcodone/APAP 5-325MG [[place] 5-325] 1 tab PO BID PRN #60 tab 04/11/15 [Rx] Ibuprofen [Motrin] 800 mg PO BID PRN #0 04/11/15 [Rx] Oxybutynin Chloride [Ditropan] 5 mg PO BID 06/18/16 [History] Cyanocobalamin [Vitamin B-12] 500 mcg PO DAILY 12/02/16 [History] Doxazosin Mesylate [Cardura] 2 mg PO HS 12/02/16 [History] Omeprazole 20 mg PO BID 12/02/16 [History] DULoxetine HCL [Cymbalta] 30 mg PO DAILY 04/07/17 [History] Cyclobenzaprine [Flexeril] 10 mg PO TID PRN #30 tab 04/10/17 [Rx] Gabapentin [Neurontin] 600 mg PO BID cap 04/10/17 [Rx] LORazepam [Ativan] 0.5 mg PO BID PRN tab 04/10/17 [Rx] Nicotine 21Mg/24Hr Patch [Habitrol] 1 patch TRANSDERM DAILY #0 patch 04/10/17 [ Rx] Follow up Appointment(s)/Referral(s): Carmen Ayala MD [Primary Care Provider] - 1-2 days Patient Instructions/Handouts: Multiple Sclerosis (DC) Activity/Diet/Wound Care/Special Instructions: [facility] [phone]. No smoking, cessation information provided. Fall precautions, up with assist, change positions every 2 hours. Discharge Disposition: TRANSFER TO SNF/ECF
[2017-04-10] MEDS: CALCIUM CARBONATE 500 MG CHEWABLE PO PRN (11:37)
--- NOTE | 2017-04-10 18:38 | P.PN ---
Subjective Progress Note Date: 04/10/17 This patient is a 52-year-old right-handed white male who was admitted hospital yesterday with acute MS exacerbation. Patient has a long-standing history of primary progressive MS. He developed increased weakness in his lower extremities and this was his reason for admission. He was started on IV Solu- Medrol yesterday for acute MS exacerbation. We are recommending 3-5 days of treatment. We're waiting further evaluation from Dr. Pinedo in regards to his potential for inpatient rehab placement. He has significant lower extremity weakness secondary to his myelopathic form of MS. We will continue to work with PT/OT to maximize his neuromuscular potential.the patient was seen today by Dr. Pinedo. We are awaiting his further recommendations for possible inpatient rehab.the patient has completed 1 day of IV Solu-Medrol therapy. He has noted improvement in his muscle strength in both his legs as well as his arms. We are anticipating that he will require at least 5 days of IV steroid therapy. Patient states that he has been accepted for inpatient rehab tomorrow. We have recommended that he should complete a total of 5 days of IV Solu-Medrol which means he will need to doses at the rehab center. The patient is noticing some improvement with his lower extremity strength. As mentioned he is being considered for transfer to inpatient rehab tomorrow. He should be maintained on 2 more doses of IV Solu-Medrol for 2 days and then placed on a slow prednisone taper. Patient is to follow-up with his regular neurologist in terms of obtaining prior authorization for use of a Ocrevus for treatment of his primary progressive MS. He will discuss this further with his neurologist. We will await further recommendations from Dr. Pinedo. We will continue to follow his progress closely. The patient is making slow improvement in his overall MS condition and initial weakness in the lower extremities. He is being considered for transfer to the inpatient rehab unit and [facility] this afternoon. He should continue on 2 more days of IV Solu- Medrol at the rehab center. He may then be started on oral prednisone taper over 6 weeks. Patient is to follow-up with his regular neurologist in [place] soon after discharge from the rehab unit. Once again we recommend that he discuss the use of Ocrevus for further management of his primary progressive MS. His overall prognosis at this time remains guarded. Objective - Vital Signs Vital signs: Vital Signs Temp 97.8 F 04/10/17 07:00 Pulse 80 04/10/17 07:00 Resp 18 04/10/17 07:00 BP 142/79 04/10/17 07:00 Pulse Ox 96 04/10/17 07:00 Intake & Output 04/09/17 04/10/17 04/10/17 18:59 06:59 18:59 Output Total 1979 275 Balance -1979 Output: Urine 1979 275 Straight 990 275 Other: Voiding Method Self-Catheterization Self-Catheterization Self-Catheterization # Voids 1 0 - Exam Physical examination: PHYSICAL EXAMINATION: Patient is resting comfortably in bed. VITAL SIGNS: Blood pressure is [142/79]. Heart rate is [80]. Respiration is [18] . Temperature is [97.8]. HEENT: Head is atraumatic, neck is supple, there were no carotid bruits. CHEST: Lungs are clear to auscultation and percussion. CARDIAC: S1, S2 normal rate and rhythm. There is no murmur. ABDOMEN: Soft and nontender. Bowel sounds are present. EXTREMITIES: There is no pedal edema. Peripheral pulses are present. Neurological examination: Patient's neurological examination is unchanged from yesterday. He has profound weakness in both lower extremities.patient feels some improvement in muscle strength in the lower extremities as well as in both upper extremities as compared to prior to his admission to hospital. Patient should continue with physical therapy exercises for the lower extremities at the rehab unit. - Labs CBC & Chem 7: 04/07/17 14:45 04/07/17 14:45 Labs: Abnormal Lab Results - Last 24 Hours (Table) 04/09/17 04/09/17 04/10/17 Range/Units 16:46 20:42 07:24 POC Glucose (mg/dL) 192 H 239 H 145 H (75-99) mg/dL 04/10/17 Range/Units 11:25 POC Glucose (mg/dL) 127 H (75-99) mg/dL Assessment and Plan (1) Multiple sclerosis exacerbation Status: Acute SNOMED Code(s): 892109577 (2) Neuropathic pain Status: Acute SNOMED Code(s): 820852075 (3) Urinary retention Status: Acute SNOMED Code(s): 653256211 (4) Weakness generalized Status: Chronic SNOMED Code(s): 36754993 Plan: This patient is a 52-year-old male who was admitted to the hospital today for acute MS exacerbation. Patient developed severe weakness in both of his lower extremities over the last week. He has been unable to stand without assistance. He has a long-standing history of underlying primary progressive form of multiple sclerosis. He is being followed at the [facility] in [facility] by his neurologist Dr. Gonzalez. He follows every 6 months with his specialist. He has not been on any specific interferon therapy for his MS exact reason why is still not clear. He was being considered for treatment of his primary progressive form of MS with the newer medication namely Ocrevus. Unfortunately his insurance, they would not pay for this medication. Patient has not been treated with other interferon therapies in the past. He does follow with his neurologist every 6 months. He is now been admitted for acute MS exacerbation of the lower extremities. We have suggested he should be maintained on IV Solu-Medrol 250 mg IV piggyback every 6 hours 5 days. He should continue on Neurontin for treatment of his neuropathic pain in the legs. We will consult Dr. Pinedo for evaluation of possible inpatient rehab placement for this patient with advanced MS. Patient was seen today by Dr. Pinedo. He is being evaluated for possible inpatient rehab for ongoing subacute rehabilitation for his advanced MS. according to the patient he has been accepted for inpatient rehab at [facility] later today. He should complete a total of 5 days of IV Solu-Medrol even if he is transferred to the rehab unit. After 5 days he should be placed on oral prednisone taper over the next 6 weeks. Patient was advised to follow-up with his primary neurologist in [place] in regards to obtaining precertification for use of Ocrevus in the management of his primary progressive MS. His overall prognosis at this time remains guarded. Patient has shown some improvement since admission with the use of his lower extremities. He has responded somewhat well to the IV steroids. He should follow-up with his primary neurologist soon after discharge from the inpatient rehab unit at [facility]. Patient is to be transferred to the subacute rehab unit later today. We will continue close neurological follow-up of this patient.
== END 2017-04-10 14:13 ==
LOC: EC 14:25 → INTOOBSV 16:51 → 4MS4W 16:51
PROVIDERS: ADMIT Internal Medicine; ATTEND Internal Medicine
DX: G35 Multiple sclerosis (principal); N40.1 Benign prostatic hyperplasia with lower urinary tract symptoms; R33.8 Other retention of urine; R35.0 Frequency of micturition; J44.9 Chronic obstructive pulmonary disease, unspecified; G62.9 Polyneuropathy, unspecified; K21.9 Gastro-esophageal reflux disease without esophagitis; F17.200 Nicotine dependence, unspecified, uncomplicated; G47.30 Sleep apnea, unspecified; Z99.89 Dependence on other enabling machines and devices; F41.9 Anxiety disorder, unspecified; F32.9 Major depressive disorder, single episode, unspecified; E66.9 Obesity, unspecified; S80.02XA Contusion of left knee, initial encounter; W19.XXXA Unspecified fall, initial encounter; Z99.3 Dependence on wheelchair; Z79.82 Long term (current) use of aspirin; Z79.899 Other long term (current) drug therapy; Z88.0 Allergy status to penicillin; Z91.030 Bee allergy status; Z86.19 Personal history of other infectious and parasitic diseases; Z80.0 Family history of malignant neoplasm of digestive organs; Z83.3 Family history of diabetes mellitus
CPT/HCPCS: 99285 ×2; 96365 ×2; 96361 ×5; 96376 ×2; 96366 ×4; 96372 ×3; 36415; 94640; 93005; 97112; 97162; 97535; 97166; 80053; 82550; 82553; 83605; 83735; 84484; 85025; 85610; 85730; 81001; 83036; 71020; G0378 ×4; S4990 ×3; J1644 ×3; J2930 ×4; J1170; C9113 ×2

== ENCOUNTER → 2017-05-22 | Outpatient (CLI) | payer OTHER ==
[2017-05-22 12:43] LABS: Basophils % (A) 0 %; CH 33.4; CHCM 33.5; Eosinophils # (A) 0.1 k/uL (0-0.7); Eosinophils % (A) 1 %; HCT 49.4 % (39.0-53.0); HGB 16.3 gm/dL (13.0-17.5); Luc # (Auto) 0.11; Luc % (Auto) 1; Lymphocytes # (A) 1.5 k/uL (1.0-4.8); Lymphocytes % (A) 15 %; MCH 33.1 pg (25.0-35.0); MCV 100.3 fL (80.0-100.0); Mean Platelet Volume 7.1; Monocytes # (A) 0.4 k/uL (0-1.0); Monocytes % (A) 4 %; Neutrophils # (A) 8.1 k/uL (1.3-7.7); Neutrophils % (A) 79 %; RBC 4.92 m/uL (4.30-5.90); RDW 13.4 % (11.5-15.5); WBC 10.2 k/uL (3.8-10.6); WBC (Perox) 10.79
[2017-05-22 13:11] LABS: ALT 38 U/L (21-72); AST 12 U/L (17-59); Alkaline Phosphatase 79 U/L (38-126); Anion Gap 7 mmol/L; Blood Urea Nitrogen 14 mg/dL (9-20); Calcium 9.5 mg/dL (8.4-10.2); Carbon Dioxide 31 mmol/L (22-30); Chloride 103 mmol/L (98-107); Glucose 89 mg/dL (74-99); Non-African American GFR(MDRD) >60 (>60 ml/min/1.73 sqM); Potassium 4.5 mmol/L (3.5-5.1); Sodium 141 mmol/L (137-145); Total Protein 6.2 g/dL (6.3-8.2)
== END | disposition home or self-care (01) ==
LOC: LABWHC1 12:16
PROVIDERS: ATTEND Psychiatry & Neurology Neurology
DX: G35 Multiple sclerosis (principal); A15.9 Respiratory tuberculosis unspecified
CPT/HCPCS: 36415; 80053; 85025; 86480

== ENCOUNTER → 2019-02-17 | Outpatient (CLI) | payer OTHER ==
--- NOTE | 2019-02-18 07:09 | MR ---
EXAMINATION TYPE: MR brain wo con DATE OF EXAM: 02/17/2019 COMPARISON: 03/12/2012 HISTORY: 53-year-old male MS TECHNIQUE: Multiplanar, multisequence images of the brain and brainstem is performed without IV contr ast. Demyelinating disease protocol with additional Sagittal Flair sequence performed. FINDINGS: T2 Lesions Present : Yes Approximate Number of Lesions: Difficult to count due to moderate to severe patchy and confluent fernando en. Locations Identified : Periventricular, deep white matter, posterior limb internal capsule, right par amedian ana paula, right middle cerebellar peduncle, right cerebellar hemisphere, dorsal medulla. Enhancing Lesion(s) Present: N/A T1 Hypointense Lesion(s) Present: Yes Change from Prior: Overall more bulky appearance to the confluent white matter changes in the periven tricular and deep white matter regions. The lesion in the dorsal medulla appears new from 2011. Diffusion weighted images demonstrate no evidence of a recent infarct or other diffusion abnormality. Stable focal encephalomalacia superior left paramedian frontal lobe with surrounding gliosis. There i s no worrisome extra-axial fluid collection. There is moderate generalized supratentorial volume loss . Secondary mild prominence to the ventricular system. Midline structures demonstrate normal morphology. The craniocervical junction appears within normal limits. 2.7 cm mucosal retention cyst floor of the right maxillary sinus and scattered mild mucosal thickenin g ethmoid air cells and frontal sinuses. IMPRESSION: 1. Redemonstrated moderate to severe patchy and confluent burden of bright white matter change. There is overall more bulky appearance to the confluent periventricular and deep white matter changes as c ompared to 2011. A bright focus in the dorsal medulla appears new from then as well. Findings may be in keeping with MS. 2. Moderate generalized atrophy. No acute intracranial abnormality seen. 3. Stable focal encephalomalacia and surrounding gliosis superior left frontal lobe could represent s equela of prior vascular or traumatic insult.
== END | disposition home or self-care (01) ==
LOC: RADMRIMAIN 07:34
PROVIDERS: ATTEND Internal Medicine
DX: G35 Multiple sclerosis (principal); G93.89 Other specified disorders of brain
CPT/HCPCS: 70551

== ENCOUNTER 2019-05-20 09:21 | Day surgery (SDC) | payer OTHER ==
[2019-05-13 15:17] VITALS: BMI 36.8
--- NOTE | 2019-05-17 08:05 | P.GSHP ---
History of Present Illness H&P Date: 05/09/19 Chief Complaint: Neurogenic bladder The patient is a 54-year-old white male with multiple sclerosis. He has been treated with tamsulosin and oxybutynin chloride he previously performed intermittent self-catheterization but has difficulty doing so. In view of this, he has recently had an indwelling Barnes catheter. However, he prefers a suprapubic cystostomy tube over a Barnes catheter and has thus elected to undergo insertion of a suprapubic cystostomy tube. - Constitutional Constitutional: Denies chills, Denies fever - Genitourinary (Male) Genitourinary: Reports incontinence - Musculoskeletal Musculoskeletal: Reports muscle weakness - Neurological Neurological: Reports motor disturbance Past Medical History Past Medical History: GERD/Reflux, Musculoskeletal Disorder, Prostate Disorder, Sleep Apnea/CPAP/BIPAP Additional Past Medical History / Comment(s): josé miguel Barlow- 15 years ago,won't use machine,norm for pt-he is able able to walk 5 steps with walker but last few days to weak to even lift legs, unable to walk or stand. Pt states has memory problems related to Multiple Sclerosis. History of Any Multi-Drug Resistant Organisms: None Reported Past Surgical History: No Surgical Hx Reported Additional Past Surgical History / Comment(s): laser eye sx oliva eyes( glaucoma) [place] teeth extraction. 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 [employer] Smoking Status: Current every day smoker Past Alcohol Use History: None Reported Additional Past Alcohol Use History / Comment(s): smoking cessation booklet given to pt Past Drug Use History: Marijuana Additional Drug Use History / Comment(s): medical marijuana - Past Family History Father Family Medical History: Cancer Additional Family Medical History / Comment(s): liver cancer Mother Family Medical History: Diabetes Mellitus, Deep Vein Thrombosis (DVT) Sister(s) Family Medical History: Cancer Medications and Allergies Home Medications Medication Instructions Recorded Confirmed Type Aspirin 81 mg PO DAILY 09/29/13 05/13/19 History Docusate [Colace] 200 mg PO DAILY 04/05/15 05/13/19 History Oxybutynin Chloride [Ditropan] 5 mg PO BID 06/18/16 05/13/19 History DULoxetine HCL [Cymbalta] 60 mg PO DAILY 04/07/17 05/13/19 History Gabapentin [Neurontin] 600 mg PO BID cap 04/10/17 05/13/19 Rx Albuterol Nebulized [Ventolin 2.5 mg INHALATION Q4H PRN 05/13/19 05/13/19 History Nebulized] Baclofen [Lioresal] 10 mg PO TID 05/13/19 05/13/19 History Bisacodyl [Dulcolax] 10 mg RECTAL DAILY PRN 05/13/19 05/13/19 History Ertapenem [INVanz] 1 gm IM Q24H 05/13/19 05/13/19 History HYDROcodone/APAP 5-325MG [[place] 1 tab PO HS 05/13/19 05/13/19 History 5-325] HYDROcodone/APAP 5-325MG [[place] 1 tab PO Q24H PRN 05/13/19 05/13/19 History 5-325] Hydrocortisone Cream 1 applic TOPICAL HS 05/13/19 05/13/19 History [Hydrocortisone 1% Cream] Ibuprofen [Motrin] 800 mg PO TID PRN 05/13/19 05/13/19 History LORazepam [Ativan] 1 mg PO DAILY 05/13/19 05/13/19 History Lansoprazole [Prevacid] 15 mg PO DAILY 05/13/19 05/13/19 History Loratadine [Claritin] 10 mg PO DAILY 05/13/19 05/13/19 History Miconazole 2% Cream [Monistat-Derm] 1 applic TOPICAL BID 05/13/19 05/13/19 History Morphine Sulfate [Morphine Sulfate 0.25 ml PO Q1H PRN 05/13/19 05/13/19 History Oral Soln Conc (20 MG/ML)] Polyethylene Glycol 3350 [Miralax] 17 gm PO DAILY 05/13/19 05/13/19 History Sennosides [Senna] 8.6 mg PO Q12H PRN 05/13/19 05/13/19 History Sertraline [Zoloft] 100 mg PO DAILY 05/13/19 05/13/19 History Allergies Allergy/AdvReac Type Severity Reaction Status Date / Time bee venom protein (honey bee) Allergy Anaphylaxis Verified 05/13/19 14:43 Penicillins Allergy Rash/Hives Verified 05/13/19 14:43 Surgical - Exam - General well developed, well nourished, no distress - Respiratory normal respiratory effort, clear to auscultation - Cardiovascular Rhythm: regular Abnormal Heart Sounds: no systolic murmur, no diastolic murmur, no rub, no S3 Gallop, no S4 Gallop, no click, no other - Abdomen Abdomen: soft - Psychiatric oriented to time, oriented to person, oriented to place, speech is normal, memory intact Assessment and Plan (1) Neurogenic bladder Status: Acute Code(s): N31.9 - NEUROMUSCULAR DYSFUNCTION OF BLADDER, UNSPECIFIED SNOMED Code(s): 556948675 Plan: Cystoscopy, insertion of suprapubic cystostomy tube. The procedure has been reviewed in detail with the patient and his . They understand risks to include anesthesia, bleeding, infection, urinary leak, and bowel injury.
[~2019-05-20 09:21] MED LIST: DEXAMETHASONE SOD PHOSPHATE 10 MG/ML 1 ML VIAL IV ONE; HYDROmorphone 0.5 MG/0.5 ML SYRINGE IVP PRN; LACTATED RINGERS 1,000 ML IV SCH; LEVOFLOXACIN 500MG-D5W PMX 500 MG in DEXTROSE/WATER 1 100ML.BAG IVPB ONE; MIDAZOLAM 2 MG/2 ML VIAL IV PRN; ONDANSETRON 4 MG/2 ML VIAL IVP ONE; SCOPOLAMINE 1.5MG/72HR PATCH TRANSDERM ONE
[2019-05-20] MEDS ORDERED: MIDAZOLAM 2 MG/2 ML VIAL ONE (09:57)
[2019-05-20] MEDS ORDERED: PROPOFOL 10 MG/ML 20 ML VIAL IV ONE (09:57)
[2019-05-20] MEDS ORDERED: fentaNYL (PF) 50 MCG/ML 2 ML AMP ONE (09:57)
[2019-05-20] MEDS ORDERED: KETAMINE 10 MG/ML 20 ML VIAL ONE (09:57)
[2019-05-20] MEDS ORDERED: LIDOCAINE 2% SYG (PF) 100 MG/5 ML MISCELLANE ONE ×2 (10:38→11:02)
[2019-05-20] MEDS ORDERED: LIDOCAINE 2% INJ 20 MG/ML SQ ONE ×2 (10:39)
[2019-05-20 11:13] VITALS: TEMP 97
--- NOTE | 2019-05-20 11:26 | P.OP ---
Date of Procedure: 05/20/19 Preoperative Diagnosis: Neurogenic bladder Postoperative Diagnosis: Neurogenic bladder, bladder calculus Procedure(s) Performed: Cystoscopy, cystolithotripsy, insertion of suprapubic cystostomy tube. Anesthesia: MAC Surgeon: Jeff Nguyen Estimated Blood Loss (ml): 5 IV fluids (ml): 500 Pathology: none sent Condition: stable Disposition: PACU Indications for Procedure: The patient is a 54-year-old white male with multiple sclerosis. He has been treated with tamsulosin and oxybutynin chloride he previously performed intermittent self-catheterization but has difficulty doing so. In view of this, he has recently had an indwelling Barnes catheter. However, he prefers a suprapubic cystostomy tube over a Barnes catheter and has thus elected to undergo insertion of a suprapubic cystostomy tube. Operative Findings: 2 cm curvilinear bladder calculus. Bladder otherwise normal. Description of Procedure: The patient was taken to the operating room and placed in the dorsal lithotomy position, with legs supported in Real stirrups. The external genitalia was prepped and draped sterilely. 2% lidocaine gel was administered intraurethrally. The 30 lens was used to introduce the 19-Syrian Stortz c ystoscopic sheath through the urethra and into the bladder under direct vision. The urethra appeared normal. The prostate showed evidence of lateral lobe enlargement consistent with the patient's age. The bladder was examined in its entirety. The ureteral orifices appeared normal. A 2 cm curvilinear calculus was seen. No tumors were seen. No diverticuli were seen. Using the 365 micron Holmium laser probe, lithotripsy was performed and the calculus fragments were removed through the cystoscope. The cystoscope was removed, and a Clinton sound was passed per urethra into the bladder. The tip of the sound was pushed up against the anterior bladder wall, where it could be palpated. 2% lidocaine was injected subcutaneously in the midline, 2 fingerbreadths above the pubis. The scalpel was then used to make a small transverse incision. The tip of the sound was pushed toward that incision. The scalpel was used to incise the fascia, allowing the sound to be pushed through the incision. A 2-0 silk tie was passed through a hole drilled in the tip of the sound, and a 20-Syrian Barnes catheter was tied to the sound. The sound was then withdrawn, pulling the catheter along with it. The catheter was then detached from the sound, and was slowly pulled back into the bladder while following the catheter tip through the urethra with the cystoscope. Once the Barnes catheter balloon was confirmed to be within the bladder, the balloon was inflated. The catheter was then sutured to the anterior abdominal wall using 2-0 silk sutures. A drain sponge was then placed over the incision, and the catheter was connected to gravity drainage. The return was clear. The patient tolerated the procedure well was taken to the recovery room in stable condition.
[2019-05-20 11:50] VITALS: PULSE 63; RESP 16
[2019-05-20 12:01] VITALS: BP 127/75
== END 2019-05-20 12:32 ==
LOC: OR 09:21
PROVIDERS: ATTEND Urology
DX: N31.9 Neuromuscular dysfunction of bladder, unspecified (principal); N21.0 Calculus in bladder; G35 Multiple sclerosis; K21.9 Gastro-esophageal reflux disease without esophagitis; N40.0 Benign prostatic hyperplasia without lower urinary tract symptoms; F32.9 Major depressive disorder, single episode, unspecified; F41.9 Anxiety disorder, unspecified; J44.9 Chronic obstructive pulmonary disease, unspecified; G47.33 Obstructive sleep apnea (adult) (pediatric); Z99.89 Dependence on other enabling machines and devices; Z86.19 Personal history of other infectious and parasitic diseases; Z80.0 Family history of malignant neoplasm of digestive organs; Z83.3 Family history of diabetes mellitus; F17.200 Nicotine dependence, unspecified, uncomplicated; Z79.82 Long term (current) use of aspirin; Z79.899 Other long term (current) drug therapy; Z91.030 Bee allergy status; Z88.0 Allergy status to penicillin
CPT/HCPCS: 52317; 51102; C2627; J2001 ×2; J2250; J1100; J2405; J1956; J3010; J2704

== ENCOUNTER → 2020-04-05 | Outpatient (CLI) | payer OTHER ==
--- NOTE | 2020-04-06 07:00 | MR ---
EXAMINATION TYPE: MR brain wo cspine wo/w DATE OF EXAM: 04/05/2020 COMPARISON: MRI brain February 17, 2019. MRI cervical spine April 10, 2011. HISTORY: MS TECHNIQUE: Multiplanar, multisequence images of the cervical spine, brain, and brainstem are all performed witho ut IV contrast. Cervical spine imaging performed without and with IV contrast utilizing 13 mL intrave nous Gadavist gadolinium contrast is administered intravenously. Demyelinating disease protocol with additional Sagittal Flair sequence performed of the brain and brainstem and PD sagittal sequences of cervical spine.. FINDINGS: BRAIN: T2 Lesions Present : Yes Approximate Number of Lesions: Difficult to accurately count due to confluent periventricular appeara nce Locations Identified : Most prominent involving deep and periventricular white matter similar to prio r. Size of Reference Lesion(s): 1. 1.2 x 1.2 x 1.4 cm lesion on axial image 25 and sagittal image 25 high posterior right frontal les ion is stable Enhancing Lesion(s) Present: N/A T1 Hypointense Lesion(s) Present: Yes Change from Prior: Stable Diffusion weighted images demonstrate no evidence of a recent infarct or other diffusion abnormality. There is no worrisome extra-axial fluid collection. Mild to moderate diffuse ventricular and sulcal prominence. Old and lacunar infarct high left parietal region axial image 29 redemonstrated. Midline structures demonstrate normal morphology. The craniocervical junction appears within normal limits. Normal vascular flow voids. . There is large follow-up and/or mucous retention cyst in the po sterior inferior right maxillary sinus redemonstrated . Remainder paranasal sinuses are clear. Mild m ucosal thickening involving ethmoid sinuses bilaterally redemonstrated. Globes are intact bilaterally . IMPRESSION: Stable moderate to severe white matter changes consistent with known demyelinating diseas e. Mild to moderate diffuse cerebral atrophy is stable. CERVICAL SPINE: FINDINGS: Sagittal images of the cervical spine show the craniocervical junction to remaining within normal limits. The cervical and upper thoracic spinal cord is normal in caliber. There are multiple focal T2 hyperintense lesions throughout the cervical spinal cord, 2 lesions at C2 level noted on sa gittal image 7. Large lesion noted at C3-C4 disc space level sagittal image 8. Suspect faint lesion p osterior C7 level sagittal image 7. Grade 1 retrolisthesis C5 on C6 on current study. The vertebral body heights are normal. Moderate to severe disc space narrowing at C5-C6 level with mild spurring, heterogeneous Modic 2 endplate changes . No suspicious postcontrast enhancement. Axial images show C2-C3 level appears within normal limits. Axial images at C3-C4 levels with tiny central disc protrusion minimally effacing the anterior thecal sac. Axial images at C4-C5 level shows a focal central disc protrusion effacing the anterior thecal sac wi th facet degenerative changes causing mild to moderate right and mild left-sided neural foraminal alexander rowing. Axial images at C5-C6 level show focal central disc protrusion at the anterior thecal sac and abuts t he cervical spinal cord, patent bilateral neural foramina. Axial images at C6-C7 levels with lobulated broad-based posterior disc protrusion effaces ventral the juan sac and causing mild to moderate bilateral neural foraminal narrowing. Axial images at C7-T1 level are within normal limits. Bilateral peripheral cord T2 hyperintense lesions noted C2 level axial image 55 correlates with sagit angela images. There is mild peripheral lesion C4 level axial image 38 and 15 left C5 lesion on image 27 along with faint left lateral lesion C7 level axial image 15. IMPRESSION: Redemonstration of multifocal demyelinating disease involvement in the cervical spinal co rd as detailed above.
== END | disposition home or self-care (01) ==
LOC: RADMRIMAIN 12:19
PROVIDERS: ATTEND Psychiatry & Neurology Neurology
DX: G35 Multiple sclerosis (principal)
CPT/HCPCS: 70551; 72156; A9585

== ENCOUNTER 2020-07-29 01:13 | Emergency (ER) | payer OTHER ==
[2020-07-29 01:23] VITALS: BP 133/87; PULSE 67; RESP 18; TEMP 98.2
--- NOTE | 2020-07-29 01:23 | ED ---
Male Urogenital HPI - General Chief complaint: Urogenital Stated complaint: Urogenital Time Seen by Provider: 07/29/20 01:15 Source: patient, family, EMS, RN notes reviewed, old records reviewed Mode of arrival: EMS Limitations: physical limitation - History of Present Illness Initial comments: This is a 55-year-old male DF for evaluation patient is MS. Patient coming in he does have suprapubic Barnes placed. Patient has had significant blood from the Barnes and around the Barnes area he did have this replaced tonight. Never has had hematuria in the past like this before. Also having blood coming out of his urethra. Patient does have pain abdominal pain amd always has some sort of abdominal pain and back pain. Patient does suffer from MS which is causing most of his issues MD Complaint: other (Hematuria) -: hour(s) Location: penis, abdomen Radiation: none Severity: mild Severity scale (1-10): 2 Consistency: constant Improves with: none Worsens with: urination new medication Reports: denies other symptoms - Related Data Home Medications Medication Instructions Recorded Confirmed Aspirin 81 mg PO DAILY 09/29/13 05/13/19 Docusate [Colace] 200 mg PO DAILY 04/05/15 05/13/19 Oxybutynin Chloride [Ditropan] 5 mg PO BID 06/18/16 05/13/19 DULoxetine HCL [Cymbalta] 60 mg PO DAILY 04/07/17 05/13/19 Albuterol Nebulized [Ventolin 2.5 mg INHALATION Q4H PRN 05/13/19 05/20/19 Nebulized] Baclofen [Lioresal] 10 mg PO TID 05/13/19 05/13/19 HYDROcodone/APAP 5-325MG [[place] 1 tab PO HS 05/13/19 05/13/19 5-325] HYDROcodone/APAP 5-325MG [[place] 1 tab PO Q24H PRN 05/13/19 05/13/19 5-325] Hydrocortisone Cream 1 applic TOPICAL HS 05/13/19 05/13/19 [Hydrocortisone 1% Cream] Ibuprofen [Motrin] 800 mg PO TID PRN 05/13/19 05/13/19 LORazepam [Ativan] 1 mg PO DAILY 05/13/19 05/13/19 Lansoprazole [Prevacid] 15 mg PO DAILY 05/13/19 05/13/19 Loratadine [Claritin] 10 mg PO DAILY 05/13/19 05/13/19 Miconazole 2% Cream [Monistat-Derm] 1 applic TOPICAL BID 05/13/19 05/13/19 Morphine Sulfate [Morphine Sulfate 0.25 ml PO Q1H PRN 05/13/19 05/20/19 Oral Soln Conc (20 MG/ML)] Sennosides [Senna] 8.6 mg PO Q12H PRN 05/13/19 05/13/19 Sertraline [Zoloft] 100 mg PO DAILY 05/13/19 05/13/19 bisacodyL [Dulcolax] 10 mg RECTAL DAILY PRN 05/13/19 05/13/19 polyethylene glycoL 3350 [Miralax] 17 gm PO DAILY 05/13/19 05/13/19 Previous Rx's Medication Instructions Recorded Gabapentin [Neurontin] 600 mg PO BID cap 04/10/17 Allergies Allergy/AdvReac Type Severity Reaction Status Date / Time bee venom protein (honey bee) Allergy Anaphylaxis Verified 05/20/19 09:46 Penicillins Allergy Rash/Hives Verified 05/20/19 09:46 Review of Systems ROS Statement: Those systems with pertinent positive or pertinent negative responses have been documented in the HPI. ROS Other: All systems not noted in ROS Statement are negative. Past Medical History Past Medical History: GERD/Reflux, Musculoskeletal Disorder, Prostate Disorder, Sleep Apnea/CPAP/BIPAP Additional Past Medical History / Comment(s): [place], shingles- 15 years ago,won't use machine,norm for pt-he is able able to walk 5 steps with walker but last few days to weak to even lift legs, unable to walk or stand. Pt states has memory problems related to Multiple Sclerosis. History of Any Multi-Drug Resistant Organisms: None Reported Past Surgical History: No Surgical Hx Reported Additional Past Surgical History / Comment(s): laser eye sx oliva eyes( glaucoma) [place] teeth extraction. Past Anesthesia/Blood Transfusion Reactions: No Reported Reaction Past Psychological History: Anxiety, Depression Smoking Status: Current every day smoker Past Alcohol Use History: None Reported Past Drug Use History: Marijuana - Past Family History Father Family Medical History: Cancer Additional Family Medical History / Comment(s): liver cancer Mother Family Medical History: Diabetes Mellitus, Deep Vein Thrombosis (DVT) Sister(s) Family Medical History: Cancer General Exam - General Exam Comments Initial Comments: Patient has suprapubic Barnes Limitations: physical limitation General appearance: alert, in no apparent distress Head exam: Present: atraumatic, normocephalic, normal inspection Eye exam: Present: normal appearance, PERRL, EOMI. Absent: scleral icterus, conjunctival injection, periorbital swelling ENT exam: Present: normal exam, mucous membranes moist Neck exam: Present: normal inspection. Absent: tenderness, meningismus, lymphadenopathy Respiratory exam: Present: normal lung sounds bilaterally. Absent: respiratory distress, wheezes, rales, rhonchi, stridor Cardiovascular Exam: Present: regular rate, normal rhythm, normal heart sounds. Absent: systolic murmur, diastolic murmur, rubs, gallop, clicks GI/Abdominal exam: Present: soft, normal bowel sounds. Absent: distended, tenderness, guarding, rebound, rigid Extremities exam: Present: normal inspection, full ROM, normal capillary refill. Absent: tenderness, pedal edema, joint swelling, calf tenderness Back exam: Present: normal inspection Neurological exam: Present: alert, oriented X3, CN II-XII intact Psychiatric exam: Present: normal affect, normal mood Skin exam: Present: warm, dry, intact, normal color. Absent: rash Course Vital Signs 07/29/20 01:15 Temperature 98.2 F Pulse Rate 67 Respiratory 18 Rate Blood Pressure 133/87 O2 Sat by Pulse 100 Oximetry - Reevaluation(s) Reevaluation #1: Medical record is reviewed Patient symptoms are improved and resolved here in the ER Barnes is replaced resolving hematuria Patient informed of results, questions answered Patient feels good for discharge home Medical Decision Making - Medical Decision Making 55 male to the ER for evaluation of urinary retention and hematuria. Barnes is replaced and patient can be discharged home Disposition Clinical Impression: Hematuria Disposition: HOME SELF-CARE Condition: Good Instructions (If sedation given, give patient instructions): Hematuria (ED) Is patient prescribed a controlled substance at d/c from ED?: No Referrals: Carmen Ayala MD [Primary Care Provider] - 1-2 days
[2020-07-29] MEDS ORDERED: HYDROmorphone 1 MG/ML 1 ML SYRINGE IM STA (01:36)
== END 2020-07-29 03:16 | disposition home or self-care (01) ==
LOC: EC 01:13
DX: R31.9 Hematuria, unspecified (principal); R10.9 Unspecified abdominal pain; M54.9 Dorsalgia, unspecified; K21.9 Gastro-esophageal reflux disease without esophagitis; G47.33 Obstructive sleep apnea (adult) (pediatric); G35 Multiple sclerosis; F41.9 Anxiety disorder, unspecified; F32.9 Major depressive disorder, single episode, unspecified; F17.200 Nicotine dependence, unspecified, uncomplicated; Z79.899 Other long term (current) drug therapy; Z88.0 Allergy status to penicillin; Z91.030 Bee allergy status; Z99.89 Dependence on other enabling machines and devices
CPT/HCPCS: 99284; 96372; 51702; J1170